=== PATIENT | male | born 1965 | race Caucasian/White ===

== ENCOUNTER 2022-01-03 19:15 | Emergency (ER) | payer OTHER, MEDICAID, SELFPAY ==
[2022-01-03] VITALS (13 sets, daily range): BP systolic 142–179; BP diastolic 101–126; PULSE 92–116; RESP 13–29; TEMP 36.5; O2SAT 90–95
--- NOTE | 2022-01-03 19:23 | DI.RAD.S_ITS ---
PROCEDURE: XR CHEST 2V INDICATIONS: shortness of breath TECHNIQUE: 2 views of the chest were acquired. COMPARISON: [facility], CT, CT ABDOMEN PELVIS WITH CONTRAST, 05/17/2018, 23:39. FINDINGS: Surgical changes and devices: None. Lungs and pleura: Lungs are clear. No pleural effusions or pneumothorax. Mediastinum: Mediastinal contours are normal. Heart size is normal. Bones and chest wall: No suspicious bony abnormalities. Soft tissues appear unremarkable. IMPRESSION: No acute cardiopulmonary abnormality. Dictated by: Pal Boyd M.D. on 01/03/2022 at 19:56 Approved by: Pal Boyd M.D. on 01/03/2022 at 19:58
--- NOTE | 2022-01-03 19:40 | ED_ITS ---
HPI - SOB/Dyspnea General Chief Complaint: Shortness of Breath/Dyspnea Stated Complaint: SOB Time Seen by Provider: 01/03/22 19:40 Source: patient Mode of arrival: Ambulatory History of Present Illness HPI Narrative: 56-year-old male former smoker with history of HTN and GERD presents with a chief complaint of 3-4 days of worsening shortness of breath. He states he feels very tight and wheezy and has had increased cough with production of whitish, frothy sputum. He denies any dizziness, weakness or lightheadedness. He denies any chest pain. He has no nausea, vomiting or diarrhea. He denies any weight gain or weight loss nor any swelling his lower extremities. He denies orthopnea. He states he has been off of his medications for 8 months or so which include various inhaler such as Advair and albuterol. He has had the occasional constipation and diarrhea but nothing significant. He denies urinary complaints such as dysuria, frequency or urgency. Related Data Previous Rx's Medication Instructions Recorded amlodipine 5 mg tablet 5 mg PO DAILY #30 tab 01/04/22 doxycycline hyclate 100 mg tablet 100 mg PO BID #20 tab 01/04/22 fluticasone 250 mcg-salmeterol 50 1 inh INHALATION BID #60 ea 01/04/22 mcg/dose blistr powdr for inhalation (Advair Diskus) lisinopril 20 mg tablet 20 mg PO DAILY #30 tab 01/04/22 prednisone 10 mg tablet See Rx Instructions .ROUTE 01/04/22 .COMPLEX #30 tab Allergies Allergy/AdvReac Type Severity Reaction Status Date / Time No Known Drug Allergies Allergy Verified 01/03/22 20:49 Review of Systems Review of Systems Narrative: GENERAL: See HP HEENT: Denies sinus pain, ear pain, sore throat, difficulty swallowing, dizziness. RESPIRATORY: See HPI CARDIOVASCULAR: See HPI GASTROINTESTINAL: See HPI. : Denies dysuria, frequency, incontinence, hematuria, urinary retention. MUSCULOSKELETAL: denies weakness, joint pain, or bony pain SKIN: Denies rash, skin lesions, or other NEUROLOGIC: Denies weakness, headache, numbness, change in speech, confusion, seizures, incoordination. PSYCHIATRIC: No concerning psychosocial issues. 12 point review of systems is negative except for those stated above Patient History Social History Smoking Status: Former smoker Smoking Status: Former smoker alcohol intake frequency: 3 or more drinks per day Alcohol type: hard liquor Exam Narrative Exam Narrative: GENERAL: [56 year old patient appears stated age. Well-developed patient, in mild distress. HEAD: Atraumatic. Normocephalic. EYES: Pupils equal round and reactive. Extraocular motions intact. No scleral icterus. No injection or drainage. ENT: Nose without bleeding, purulent drainage. Throat without erythema, tonsillar hypertrophy or exudate. Airway patent. NECK: Trachea midline. Non tender CARDIOVASCULAR: Tachycardic but regular rhythm without murmurs, gallops, or rubs. RESPIRATORY: Prolonged expiratory phase with decrease breath sounds throughout, expiratory wheeze in all boogie, no tachypnea, hypoxemia or use of accessory muscles GASTROINTESTINAL: Abdomen soft, non-tender, nondistended. EXTREMITIES: No edema or joint tenderness. BACK: Nontender without deformity or crepitance. No flank tenderness. NEURO: AOx3. SKIN: No rash or erythema of visible areas Initial Vital Signs Initial Vital Signs: Vital Signs Temperature 97.7 F 01/03/22 19:19 Pulse Rate 116 H 01/03/22 19:19 Respiratory Rate 22 01/03/22 19:19 Blood Pressure 160/101 H 01/03/22 19:19 Pulse Oximetry 93 01/03/22 19:19 Course Orders Ordered: ED Orders 01/03/22 19:23 XR chest 2V Stat EKG-12 Lead Stat Measure peak expiratory flow ONCE RT Consult Eval and Treat Now 01/03/22 19:31 COVID19 -Nasal RAPID/Pre-Proc Stat 01/03/22 20:30 Lactate (Lactic Acid) Stat 01/03/22 20:41 Complete Blood Count AUTO DIFF Stat Comprehensive Metabolic Panel Stat D Dimer Stat NT-proBNP (BNP-Adult 18+) Stat Troponin & CK Cardiac Panel Stat 01/03/22 21:36 CT angio chest PE protocol Stat 01/03/22 22:54 Consult to Respiratory Therapy Evaluate & Treat Albuterol (Albuterol Hfa Prepack) 1 box MISC SEEINSTR ONE Stop: 01/04/22 03:07 Discontinued Medications Albuterol (Albuterol 2.5 Mg/3 Ml Neb (Adult)) 5 mg INH NOW ONE Stop: 01/03/22 23:04 Last Admin: 01/03/22 23:08 Dose: 5 mg Documented by: ANJALI Albuterol (Albuterol 2.5 Mg/3 Ml Neb (Adult)) 5 mg INH NOW ONE Stop: 01/04/22 00:31 Albuterol (Albuterol 2.5 Mg/3 Ml Neb (Adult)) 20 mg INH NOW ONE Stop: 01/04/22 00:37 Last Admin: 01/04/22 00:48 Dose: 20 mg Documented by: ANJLAI Albuterol/Ipratropium (Albuterol/Ipratropium 3 Ml Ampul) 3 ml INH NOW ONE Stop: 01/03/22 19:45 Last Admin: 01/03/22 20:08 Dose: 3 ml Documented by: JOESPH Furosemide (Furosemide 40 Mg/4 Ml Vial) 40 mg IV NOW ONE Stop: 01/03/22 21:37 Last Admin: 01/03/22 22:02 Dose: 40 mg Documented by: SANJANA Magnesium Sulfate (Magnesium Sulfate) 2 gm in 50 mls @ 150 mls/hr IV NOW ONE Stop: 01/04/22 00:46 Last Infusion: 01/04/22 00:57 Dose: 0 mls/hr Documented by: SHEILA Cosigned by: MONIKA Admin: 01/04/22 00:37 Dose: 150 mls/hr Documented by: MONIKA Cosigned by: SHEILA Methylprednisolone (Methylprednisolone 125 Mg/2 Ml Vial) 125 mg IV NOW ONE Stop: 01/03/22 19:45 Last Admin: 01/03/22 20:50 Dose: 125 mg Documented by: MONIKA Reevaluation(s) Reevaluation #1: Patient has significant improvement after above-stated therapies. He ambulates through the entire department without conversational dyspnea, pulse ox remains in the low 90s. Vital Signs Vital signs: Vital Signs - 8 hr 01/03/22 19:19 01/03/22 19:57 01/03/22 20:00 Temperature 97.7 F Pulse Rate 116 H 109 H 109 H Respiratory Rate 22 25 H Blood Pressure 160/101 H Pulse Oximetry 93 92 91 01/03/22 20:30 01/03/22 21:00 01/03/22 21:01 Temperature Pulse Rate 99 H 95 H 100 H Respiratory Rate 24 28 H 28 H Blood Pressure 142/108 H Pulse Oximetry 90 L 91 91 01/03/22 21:30 01/03/22 22:02 01/03/22 22:04 Temperature Pulse Rate 98 H 104 H Respiratory Rate 21 20 Blood Pressure 169/121 H 179/126 H Pulse Oximetry 91 93 94 01/03/22 22:44 01/03/22 23:00 01/03/22 23:08 Temperature Pulse Rate 101 H 104 H 101 H Respiratory Rate 21 29 H 20 Blood Pressure Pulse Oximetry 93 92 01/03/22 23:30 01/04/22 00:00 01/04/22 00:07 Temperature Pulse Rate 92 H 103 H 101 H Respiratory Rate 13 27 H 23 Blood Pressure 154/98 H Pulse Oximetry 95 89 L 90 L 01/04/22 00:30 01/04/22 01:00 01/04/22 01:14 Temperature Pulse Rate 103 H 92 H 92 H Respiratory Rate 19 19 20 Blood Pressure Pulse Oximetry 88 L 93 01/04/22 01:30 01/04/22 02:00 01/04/22 02:30 Temperature Pulse Rate 99 H 97 H 95 H Respiratory Rate 27 H 19 Blood Pressure Pulse Oximetry 94 95 MDM - SOB/Dyspnea Lab Data Result diagrams: 01/03/22 20:41 01/03/22 20:41 Labs: Lab Results 01/03/22 01/03/22 01/03/22 Range/Units 19:31 20:30 20:41 WBC 6.8 (4.5-11.0) X10^3/uL RBC 5.44 (4.5-5.9) X10^6/uL Hgb 17.1 (13.5-17.5) g/dL Hct 50.5 (41-53) % MCV 92.9 (80-100) fL MCH 31.5 (26-34) PG MCHC 33.9 (30-36) % RDW 14.4 (11.6-14.8) % Plt Count 290 (150-400) X10^3/uL Neut % (Auto) 50.0 (50-75) % Lymph % (Auto) 31.3 (25-40) % [place] % (Auto) 6.7 (3-14) % Eos % (Auto) 10.6 H (2-4) % Baso % (Auto) 1.4 (0-2) % Neut # (Auto) 3400 (7056-4414) /uL Lymph # (Auto) 2100 (1407-1095) /uL [place] # (Auto) 500 (0-900) /uL Eos # (Auto) 700 H (0-450) /uL Baso # (Auto) 100 (0-100) /uL D-Dimer (<230) ng/mL Sodium (137-145) mmol/L Potassium (3.4-5.1) mmol/L Chloride (98-107) mmol/L Carbon Dioxide (22-32) mmol/L BUN (9-20) mg/dL Creatinine (0.66-1.25) mg/dL Estimated GFR (>60) mL/min BUN/Creatinine Ratio (6-22) Glucose (70-100) mg/dL Lactate 1.4 (0.7-2.1) mmol/L Calcium (8.4-10.2) mg/dL Total Bilirubin (0.2-1.3) mg/dL AST (17-59) IU/L ALT (<50) IU/L Alkaline Phosphatase (38-126) U/L Total Creatine Kinase (55-170) U/L CK-MB (CK-2) (<2.37) ng/mL CK-MB (CK-2) Rel Index (1.5-5.0) % Troponin I (0.01-0.034) ng/mL NT-Pro-B Natriuret Pep (<125) pg/mL Total Protein (6.3-8.2) g/dL Albumin (3.5-5.0) g/dL Globulin (1.7-4.1) g/dL Albumin/Globulin Ratio (1.0-2.8) SARS-CoV-2 (PCR) Negative (Negative) 01/03/22 01/03/22 01/03/22 Range/Units 20:41 20:41 20:41 WBC (4.5-11.0) X10^3/uL RBC (4.5-5.9) X10^6/uL Hgb (13.5-17.5) g/dL Hct (41-53) % MCV (80-100) fL MCH (26-34) PG MCHC (30-36) % RDW (11.6-14.8) % Plt Count (150-400) X10^3/uL Neut % (Auto) (50-75) % Lymph % (Auto) (25-40) % [place] % (Auto) (3-14) % Eos % (Auto) (2-4) % Baso % (Auto) (0-2) % Neut # (Auto) (2159-1844) /uL Lymph # (Auto) (9528-2116) /uL [place] # (Auto) (0-900) /uL Eos # (Auto) (0-450) /uL Baso # (Auto) (0-100) /uL D-Dimer 330 H (<230) ng/mL Sodium 139 (137-145) mmol/L Potassium 4.4 (3.4-5.1) mmol/L Chloride 101 (98-107) mmol/L Carbon Dioxide 27 (22-32) mmol/L BUN 14 (9-20) mg/dL Creatinine 1.06 (0.66-1.25) mg/dL Estimated GFR > 60 (>60) mL/min BUN/Creatinine Ratio 13.2 (6-22) Glucose 92 (70-100) mg/dL Lactate (0.7-2.1) mmol/L Calcium 9.1 (8.4-10.2) mg/dL Total Bilirubin 0.9 (0.2-1.3) mg/dL AST 34 (17-59) IU/L ALT 20 (<50) IU/L Alkaline Phosphatase 43 (38-126) U/L Total Creatine Kinase 141 (55-170) U/L CK-MB (CK-2) 6.13 H (<2.37) ng/mL CK-MB (CK-2) Rel Index 4.3 (1.5-5.0) % Troponin I 0.031 (0.01-0.034) ng/mL NT-Pro-B Natriuret Pep 2870 H (<125) pg/mL Total Protein 8.5 H (6.3-8.2) g/dL Albumin 4.6 (3.5-5.0) g/dL Globulin 3.9 (1.7-4.1) g/dL Albumin/Globulin Ratio 1.2 (1.0-2.8) SARS-CoV-2 (PCR) (Negative) Imaging Data CT scan - chest: Radiologist's Impression: [address] [address] [address] Scan Report Addendum Patient: Kapil Suárez MR#: [id number] : 1965 Acct:[id number] Age/Sex: 56 / M Date of Service: 01/03/22 Loc: ED Accession Number: [id number] ?? Procedure: CT angio chest PE protocol Ordering Provider: Melvin Gaitan D.O. ADDENDUMThis report includes an Addendum and supersedes previous reports for this exam. ? ? ? PROCEDURE:? CT ANGIO CHEST PE PROTOCOL ? INDICATIONS:? SOB, tachycardia 99, hypoxemia R24, critical / BNP ? TECHNIQUE:? After the administration of intravenous contrast, 2 mm thick sections acquired from the pulmonary apices to the posterior costophrenic angles.? 3-dimensional maximum intensity projection (MIP) coronal and sagittal reformats were then acquired through the thorax.? For radiation dose reduction, the following was used:? automated exposure con trol, adjustment of mA and/or kV according to patient size.? ? COMPARISON:? [facility], CT, CT ABDOMEN PELVIS WITH CONTRAST, 05/17/2018, 23:39.? [facility], CR, XR CHEST 2V, 01/03/2022, 19:19. ? FINDINGS:? Image quality:? Excellent.? ? Pulmonary arteries:? Pulmonary arteries are normal in size, and demonstrate no intraluminal filling defects to suggest central pulmonary embolism.? ? Lungs and pleura:? Minimal dependent atelectasis.? There is bronchial wall thickening.? This is distal mucus airway plugging.? Central airways are clear.? No pleural effusions or pneumothorax.? ? Mediastinum:? Heart size appears prominent, without pericardial effusion.? No mediastinal or hilar adenopathy.? Thoracic aorta is normal in caliber and enhancement.? Esophagus is normal in caliber, without hiatal hernia.? ? Bones and chest wall:? No suspicious bony lesions.? Ribs and thoracic spine appear intact throughout.? Chronic T12 compression fracture.? Thyroid gland is unremarkable.? No axillary or supraclavicular adenopathy.? Left gynecomastia.? ? Abdomen:? Visualized upper abdominal solid organs appear normal in the early arterial phase of enhancement.? Small hypodensities in the liver.? Cholelithiasis.? ? IMPRESSION:? 1. No pulmonary embolism. ? 2. No acute airspace opacity. ? 3. Cholelithiasis. ? ? ? Dictated by: Pal Boyd M.D. on 01/03/2022 at 22:58 ? ? Approved by: Pal Boyd M.D. on 01/03/2022 at 23:04 ? ? ? ADDENDUM: 4. Bronchial wall thickening and distal mucus airway plugging.? This is most consistent with mild bronchitis. ? ? Dictated by: Pal Boyd M.D. on 01/03/2022 at 23:08 ? ? Approved by: Pal Boyd M.D. on 01/03/2022 at 23:09 ? Addendum Dictated By: Pal Boyd MD Addendum Signed By: Addendum Cosigned By: DD/ TD/TT: 01/03/22 PROCEDURE:? CT ANGIO CHEST PE PROTOCOL ? INDICATIONS:? SOB, tachycardia 99, hypoxemia R24, critical / BNP ? TECHNIQUE:? After the administration of intravenous contrast, 2 mm thick sections acquired from the pulmonary apices to the posterior costophrenic angles.? 3-dimensional maximum intensity projection (MIP) coronal and sagittal reformats were then acquired through the thorax.? For radiation dose reduction, the following was used:? automated exposure control, adjustment of mA and/or kV according to patient size.? ? COMPARISON:? [facility], CT, CT ABDOMEN PELVIS WITH CONTRAST, 05/17/2018, 23:39.? [facility], CR, XR CHEST 2V, 01/03/2022, 19:19. ? FINDINGS:? Image quality:? Excellent.? ? Pulmonary arteries:? Pulmonary arteries are normal in size, and demonstrate no intraluminal filling defects to suggest central pulmonary embolism.? ? Lungs and pleura:? Minimal dependent atelectasis.? There is bronchial wall thickening.? This is distal mucus airway plugging.? Central airways are clear.? No pleural effusions or pneumothorax.? ? Mediastinum:? Heart size appears prominent, without pericardial effusion.? No mediastinal or hilar adenopathy.? Thoracic aorta is normal in caliber and enhancement.? Esophagus is normal in caliber, without hiatal hernia.? ? Bones and chest wall:? No suspicious bony lesions.? Ribs and thoracic spine appear intact throughout.? Chronic T12 compression fracture.? Thyroid gland is unremarkable.? No axillary or supraclavicular adenopathy.? Left gynecomastia.? ? Abdomen:? Visualized upper abdominal solid organs appear normal in the early arterial phase of enhancement.? Small hypodensities in the liver.? Cholelithiasis.? ? IMPRESSION:? 1. No pulmonary embolism. ? 2. No acute airspace opacity. ? 3. Cholelithiasis. ? ? ? Dictated by: Pal Boyd M.D. on 01/03/2022 at 22:58 ? ? Approved by: Pal Boyd M.D. on 01/03/2022 at 23:04 ? MDM Narrative Medical decision making narrative: Multiple etiologies for patient's symptoms considered including: [Exacerbation of COPD versus pneumonia versus pulmonary embolism versus pulmonary edema versus other Findings and discharge diagnosis discussed with patient/family followed by verbalization of understanding Patient has significant improvement in symptoms after above-stated therapies. He has had extensive evaluation and multiple medications. He is now able to ambulate through the department, has no conversational dyspnea and pulse ox is in the low 90s. We have discussed at length the importance of establishing with a primary care provider and getting back on his medications. I have refilled his chronic medications. He has been given extensive return precautions and questions have been answered to his apparent satisfaction Discharge Plan Departure Patient Disposition: Home Clinical Impression: Atypical pneumonia, Pulmonary edema, Acute exacerbation of chronic obstructive pulmonary disease Instructions: Atypical Pneumonia Activity Restrictions/Additional Instructions: *You have been diagnosed with [exacerbation of COPD, atypical pneumonia, mild pulmonary edema *What to do: *Please continue to take your regular medications as directed. [ x] New medication prescriptions sent to your pharmacy: [ [facility] in [place]] [ ] New medication written as a paper prescription [ ] No new medications given *Please follow up with your primary care provider in 2-3 days, call for an appointment. Let them know you were seen in the Emergency Department and that we ask that you be seen in follow up. We will electronically transmit a record of today's note if your PCP is in our system *If you do not have a primary care provider please contact the [facility] Resource line at [phone]. They will ask some questions about your medical history and help get you set up with a doctor in the community. *Return to Emergency Department if you should have any new, worsening or concerning symptoms, such as [fever greater than 101 F, shaking chills, worsening pain, persistent vomiting or other bothersome symptoms] Prescriptions: New prednisone 10 mg tablet See Rx Instructions .ROUTE .COMPLEX Qty: 30 0RF Rx Instructions: Day 1,2,3: 40mg PO Daily Day 4,5,6: 30mg PO Daily Day 7,8,9: 20mg PO Daily Day 10,11,12: 10mg PO Daily #30 doxycycline hyclate 100 mg tablet 100 mg PO BID Qty: 20 0RF fluticasone propion-salmeterol [Advair Diskus] 250-50 mcg/dose blister with device 1 inh inhalation BID Qty: 60 0RF lisinopril 20 mg tablet 20 mg PO DAILY Qty: 30 0RF amlodipine 5 mg tablet 5 mg PO DAILY Qty: 30 0RF
[2022-01-03 19:59] LABS: COVID19 -Nasal RAPID Negative (Negative)
[2022-01-03] MEDS: ALBUTEROL/IPRATROPIUM 3 ML AMPUL INH (20:08)
[2022-01-03 20:50] LABS: Lactate (Lactic Acid) 1.4 mmol/L (0.7-2.1)
[2022-01-03] MEDS: methylPREDNISolone 125 MG/2 ML VIAL IV (20:50)
[2022-01-03 20:57] LABS: Add Manual Diff / Slide Review NO; Basophils Absolute Auto 100 /uL (0-100); Basophils Percent Auto 1.4 % (0-2); Eosinophils Absolute Auto 700 /uL (0-450); Eosinophils Percent Auto 10.6 % (2-4); Hematocrit 50.5 % (41-53); Hemoglobin 17.1 g/dL (13.5-17.5); Lymphocytes Absolute Auto 2100 /uL (1100-4500); Lymphocytes Percent Auto 31.3 % (25-40); Mean Corpuscular HGB Conc 33.9 % (30-36); Mean Corpuscular Hemoglobin 31.5 PG (26-34); Mean Corpuscular Volume 92.9 fL (80-100); Monocytes Absolute Auto 500 /uL (0-900); Monocytes Percent Auto 6.7 % (3-14); Neutrophils Absolute Auto 3400 /uL (1500-7000); Platelet Count 290 X10^3/uL (150-400); Red Blood Cell Count 5.44 X10^6/uL (4.5-5.9); Red Cell Distribution Width 14.4 % (11.6-14.8); White Blood Cell Count 6.8 X10^3/uL (4.5-11.0)
[2022-01-03 21:03] LABS: D Dimer 330 ng/mL (<230)
[2022-01-03 21:04] LABS: Alanine Aminotransferase 20 IU/L (<50); Albumin 4.6 g/dL (3.5-5.0); Albumin Globulin Ratio 1.2 (1.0-2.8); Alkaline Phosphatase 43 U/L (38-126); Aspartate Aminotransferase 34 IU/L (17-59); BUN Creatinine Ratio 13.2 (6-22); Bilirubin Total 0.9 mg/dL (0.2-1.3); Blood Urea Nitrogen 14 mg/dL (9-20); Calcium 9.1 mg/dL (8.4-10.2); Carbon Dioxide 27 mmol/L (22-32); Chloride 101 mmol/L (98-107); Creatine Kinase 141 U/L (55-170); Estimated Glomerular Filt Rate > 60 mL/min (>60); Globulin 3.9 g/dL (1.7-4.1); Glucose 92 mg/dL (70-100); Potassium 4.4 mmol/L (3.4-5.1); Sodium 139 mmol/L (137-145); Total Protein 8.5 g/dL (6.3-8.2)
[2022-01-03 21:12] LABS: NT-proBNP (BNP-Adult 18+) 2870 pg/mL (<125)
[2022-01-03 21:16] LABS: Troponin I 0.031 ng/mL (0.01-0.034)
[2022-01-03 21:22] LABS: HEMOLYSIS 96 (0-50)
--- NOTE | 2022-01-03 21:36 | DI.CT.S_ITS ---
PROCEDURE: CT ANGIO CHEST PE PROTOCOL INDICATIONS: SOB, tachycardia 99, hypoxemia R24, critical [id number] / BNP TECHNIQUE: After the administration of intravenous contrast, 2 mm thick sections acquired from the pulmonary apices to the posterior costophrenic angles. 3-dimensional maximum intensity projection (MIP) coronal and sagittal reformats were then acquired through the thorax. For radiation dose reduction, the following was used: automated exposure control, adjustment of mA and/or kV according to patient size. COMPARISON: [facility], CT, CT ABDOMEN PELVIS WITH CONTRAST, 05/17/2018, 23:39. [facility], CR, XR CHEST 2V, 01/03/2022, 19:19. FINDINGS: Image quality: Excellent. Pulmonary arteries: Pulmonary arteries are normal in size, and demonstrate no intraluminal filling defects to suggest central pulmonary embolism. Lungs and pleura: Minimal dependent atelectasis. There is bronchial wall thickening. This is distal mucus airway plugging. Central airways are clear. No pleural effusions or pneumothorax. Mediastinum: Heart size appears prominent, without pericardial effusion. No mediastinal or hilar adenopathy. Thoracic aorta is normal in caliber and enhancement. Esophagus is normal in caliber, without hiatal hernia. Bones and chest wall: No suspicious bony lesions. Ribs and thoracic spine appear intact throughout. Chronic T12 compression fracture. Thyroid gland is unremarkable. No axillary or supraclavicular adenopathy. Left gynecomastia. Abdomen: Visualized upper abdominal solid organs appear normal in the early arterial phase of enhancement. Small hypodensities in the liver. Cholelithiasis. IMPRESSION: 1. No pulmonary embolism. 2. No acute airspace opacity. 3. Cholelithiasis. Dictated by: Pal Boyd M.D. on 01/03/2022 at 22:58 Approved by: Pal Boyd M.D. on 01/03/2022 at 23:04
[2022-01-03] MEDS: FUROSEMIDE 40 MG/4 ML VIAL IV (22:02)
[2022-01-03 22:15] LABS: CKMB % Relative Index 4.3 % (1.5-5.0); Creatine Kinase MB 6.13 ng/mL (<2.37)
[2022-01-03] MEDS: ALBUTEROL 2.5 MG/3 ML NEB (ADULT) 5 MG INH (23:08)
[2022-01-04] VITALS (9 sets, daily range): BP systolic 154; BP diastolic 98; PULSE 92–103; RESP 19–27; O2SAT 88–95
[2022-01-04] MEDS: MAGNESIUM SULFATE 2 GM/50 ML PIGGYBACK IV (00:37)
[2022-01-04] MEDS: ALBUTEROL 2.5 MG/3 ML NEB (ADULT) 20 MG INH (00:48)
--- NOTE | 2022-01-04 02:56 | PC.NURSE ---
ambulation trial, passed, pt walked 200ft with a Spo2 of 90%
[2022-01-04] MEDS: ALBUTEROL HFA PREPACK 1 BOX MISC (03:09)
--- NOTE | 2022-01-04 07:29 | PC.NURSE ---
friend called to see if her got a ride.
== END 2022-01-04 04:47 | disposition home or self-care (01) ==
PROVIDERS: Emergency Provider Emergency Medicine
DX: J18.9 Pneumonia, unspecified organism (principal); J81.1 Chronic pulmonary edema; J44.1 Chronic obstructive pulmonary disease with (acute) exacerbation; Z87.891 Personal history of nicotine dependence; Z20.822 Contact with and (suspected) exposure to COVID-19
CPT/HCPCS: 36415; 71046; 71275; 80053; 82550; 82553; 83605; 83880; 84484; 85025; 85379; 87635; 93005; 94640; 96365; 96375; 99284; C9803; J1940; J2930; J3475; J7613; Q9967

== ENCOUNTER 2023-08-05 11:46 | Observation (INO) | payer OTHER, SELFPAY ==
[2023-08-05] VITALS (13 sets, daily range): BP systolic 134–198; BP diastolic 84–123; PULSE 102–111; RESP 17–26; TEMP 36.1–36.9; O2SAT 92–97; BMI 30.3
--- NOTE | 2023-08-05 | DI.CT.S_ITS ---
PROCEDURE: CT ELBOW WITH LEFT INDICATIONS: infection in elbow and mid forearm TECHNIQUE: Noncontrast 1-1.5 mm axial sections were acquired through the elbow joint, with coronal and sagittal reformats. COMPARISON: None. FINDINGS: Image quality: Excellent. Bones: No acute fracture or osseous erosions. Soft tissues: Extensive soft tissue edema throughout the forearm most prominent along the dorsal aspect with early rim enhancement of a fluid collection over the proximal ulna with subtle rim enhancement measuring 3.8 x 0.7 by 5.2 centimeters. IMPRESSION: Extensive soft tissue edema throughout the forearm with rim enhancing fluid collection overlying the olecranon which may reflect abscess versus hyperemia and synovial proliferation from olecranon bursitis. Given the extensive soft tissue edema favor abscess. Correlate for signs of infection Dictated by: Hosea King M.D. on 08/05/2023 at 16:10 Approved by: Hosea King M.D. on 08/05/2023 at 16:18
--- NOTE | 2023-08-05 12:08 | ED.WOUNDLAC ---
HPI - Wound/Laceration <Kaden Rodriguez PA-C - Last Filed: 08/05/23 13:50> General Chief Complaint: Wound/Laceration Stated Complaint: PER PT INFECTION IN ARM/ELBOW Time Seen by Provider: 08/05/23 11:49 Source: patient Mode of arrival: Ambulatory History of Present Illness HPI narrative: This is a 58-year-old male presents emergency department due to left upper extremity redness and swelling for the last 10 days. He states that he initially drilled into his left 2nd digit 11 days ago and did not come to the emergency department. His tetanus is not up-to-date. He drilled into 11 days ago with some mild pain but then soon after noticed redness and swelling affecting his left hand and and forearm. He states that his forearm feels ?tight and hot?. States that his hand feels like this as well. He is not describe any significant pain in affecting his fingers does not describe any changes in range of motion. Related Data Home Medications Medication Instructions Recorded Confirmed albuterol sulfate 90 mcg/actuation 1 puff inhalation DAILY 08/05/23 08/05/23 aerosol inhaler fluticasone propionate 115 1 puff inhalation DAILY 08/05/23 08/05/23 mcg-salmeterol 21 mcg/actuation HFA inhaler (Advair HFA) furosemide 20 mg tablet 20 mg PO DAILY 08/05/23 08/05/23 omeprazole 40 mg capsule,delayed 40 mg PO DAILY 08/05/23 08/05/23 release Previous Rx's Medication Instructions Recorded amlodipine 5 mg tablet 5 mg PO DAILY #30 tabs 01/04/22 lisinopril 20 1 tab PO DAILY #90 tabs 01/06/22 mg-hydrochlorothiazide 12.5 mg tablet Allergies Allergy/AdvReac Type Severity Reaction Status Date / Time No Known Drug Allergies Allergy Verified 08/05/23 12:04 Review of Systems <Kaden Rodriguez PA-C - Last Filed: 08/05/23 13:50> Review of Systems Narrative: GENERAL: Denies chills, fatigue, malaise, fever, sweats. HEENT: Denies sinus pain, ear pain, sore throat, difficulty swallowing, dizziness. RESPIRATORY: Denies dyspnea, cough, wheezing, hemoptysis, sputum. CARDIOVASCULAR: Denies chest pain, palpitations, orthopnea, edema, GASTROINTESTINAL: Denies nausea, vomiting, abdominal pain, diarrhea, constipation, melena. : Denies dysuria, frequency, incontinence, hematuria, urinary retention. MUSCULOSKELETAL: denies weakness, joint pain, or bony pain SKIN: Left forearm and hand erythema and tight to the touch NEUROLOGIC: Denies weakness, headache, numbness, change in speech, confusion, seizures, incoordination. PSYCHIATRIC: No concerning psychosocial issues. 12 point review of systems is negative except for those stated above Patient History <Kaden Rodriguez PA-C - Last Filed: 08/05/23 13:50> Medical History (Updated 08/05/23 @ 13:50 by Kaden Rodriguez PA-C) Hernia Vision disorder Hearing loss Ulcers of both lower legs (~2015) Alopecia (~2019) COPD (chronic obstructive pulmonary disease) (~2009) Substance abuse (~1987) PTSD (post-traumatic stress disorder) Depression (~1989) Shoulder pain (~2011) Fractures (~1975) Chronic back pain (~1989) Chicken pox Partial blindness (~1995) Hemorrhoid (~2019) Fatigue Surgical History (Updated 02/17/22 @ 21:15 by Laya Newman) Anesthesia History of thumb surgery (~2003) History of knee surgery (~1975) History of eye surgery (~1995) History of back surgery (~2016) Family History (Updated 02/17/22 @ 21:16 by Laya Newman) Father History of heart disease Mother History of heart disease Brother History of heart disease Hypertension Social History household members: none Smoking Status: Former smoker alcohol intake: current Smoking Status: Former smoker alcohol intake frequency: 3 or more drinks per day Alcohol type: hard liquor Exam <Kaden Rodriguez PA-C - Last Filed: 08/05/23 13:50> Narrative Exam Narrative: GENERAL: Well-developed patient, in mild distress. HEAD: Atraumatic. Normocephalic. EYES: Pupils equal round and reactive. Extraocular motions intact. No scleral icterus. No injection or drainage. ENT: Nose without bleeding, purulent drainage. Throat without erythema, tonsillar hypertrophy or exudate. Airway patent. NECK: Trachea midline. Non tender CARDIOVASCULAR: Regular rate and rhythm without murmurs, gallops, or rubs. RESPIRATORY: Clear to auscultation. Breath sounds equal bilaterally. No wheezes, rales, or rhonchi. GASTROINTESTINAL: Abdomen soft, non-tender, nondistended. EXTREMITIES: No edema or joint tenderness. BACK: Nontender without deformity or crepitance. No flank tenderness. NEURO: AOx3. SKIN: Small puncture wound to the lateral aspect of the left 2nd digit. No significant fluctuance around the area, no purulent drainage. Erythema affecting the left hand with swelling as well as the left forearm. No pain with passive extension at the PIP joint of the left 2nd digit. No flexor tendon sheath tenderness. Initial Vital Signs Initial Vital Signs: Vital Signs Temperature 97.9 F 08/05/23 12:01 Pulse Rate 104 H 08/05/23 12:01 Respiratory Rate 17 08/05/23 12:01 Blood Pressure 198/123 H 08/05/23 12:01 Pulse Oximetry 95 08/05/23 12:01 Oxygen Delivery Method Room Air 08/05/23 12:01 <Yahaira Guzman DO - Last Filed: 08/05/23 16:12> Initial Vital Signs Initial Vital Signs: Vital Signs Temperature 97.9 F 08/05/23 12:01 Pulse Rate 104 H 08/05/23 12:01 Respiratory Rate 17 08/05/23 12:01 Blood Pressure 198/123 H 08/05/23 12:01 Pulse Oximetry 95 08/05/23 12:01 Oxygen Delivery Method Room Air 08/05/23 12:01 Course <Kaden Rodriguez PA-C - Last Filed: 08/05/23 13:50> Orders Ordered: ED Orders 08/05/23 12:07 XR finger LT min 2V Stat 08/05/23 12:59 Complete Blood Count AUTO DIFF Stat Comprehensive Metabolic Panel Stat Lactate (Lactic Acid) Stat Procalcitonin Stat 08/05/23 13:25 Blood Culture Stat Acetaminophen (Acetaminophen 325 Mg Tablet) 650 mg PO Q6H PRN PRN Reason: Fever/Mild Pain (1-3) Amlodipine Besylate (Amlodipine 5 Mg Tablet) 5 mg PO DAILY [facility] Last Admin: 08/05/23 14:15 Dose: 5 mg Documented By: ROLANDO Hydrochlorothiazide (Hydrochlorothiazide 25 Mg Tablet) 12.5 mg PO DAILY [facility] Last Admin: 08/05/23 14:29 Dose: 12.5 mg Documented By: ROLANDO Ceftriaxone Sodium 1,000 mg/ (Sodium Chloride) 100 mls @ 200 mls/hr IV Q24H [facility] Stop: 08/09/23 21:01 Vancomycin HCl/Dextrose (Vancomycin) 1,500 mg in 300 mls @ 200 mls/hr IV Q12H [facility] Lisinopril (Lisinopril 20 Mg Tablet) 20 mg PO DAILY [facility] Last Admin: 08/05/23 14:28 Dose: 20 mg Documented By: ROLANDO Melatonin (Melatonin 3 Mg Tablet) 6 mg PO BEDTIME PRN PRN Reason: Insomnia Naloxone HCl (Naloxone 0.4 Mg/Ml Vial) 0.2 mg IV Q2MIN PRN PRN Reason: Opiate Reversal Ondansetron HCl (Ondansetron 4 Mg/2 Ml Inj) 4 mg IV Q6HR PRN PRN Reason: NV Oxycodone HCl (Oxycodone Ir 5 Mg Tablet) 5 mg PO Q4HR PRN PRN Reason: Pain, Moderate (4-6) Pantoprazole Sodium (Pantoprazole Dr 40 Mg Tablet) 40 mg PO 0600 [facility] Polyethylene Glycol (Polyethylene Glycol 3350 17 Gm Powd.Pack) 17 gm PO DAILY PRN PRN Reason: Constipation Sennosides (Sennosides 8.6 Mg Tablet) 8.6 mg PO BID PRN PRN Reason: Constipation Vancomycin HCl (Vancomycin Per Pharmacy) 1 request MISC PRN PRN PRN Reason: . Vancomycin HCl (Vancomycin Trough) 1 request MISC 1330 ONE Stop: 08/07/23 13:31 Discontinued Medications Diphtheria/Tetanus/Acell Pertussis (Tet,Diph,Pertuss(Acell),Vac/Pf 0.5 Ml Syringe) 0.5 ml IM .ONCE ONE Stop: 08/05/23 12:18 Last Admin: 08/05/23 12:59 Dose: 0.5 ml Documented By: RENATA Piperacillin Sod/Tazobactam (Sod 4.5 gm/ Sodium Chloride) 100 mls @ 200 mls/hr IV NOW ONE Stop: 08/05/23 12:18 Last Infusion: 08/05/23 14:05 Dose: Infused Documented By: Admin: 08/05/23 13:29 Dose: 200 mls/hr Documented By: RENATA Vancomycin HCl (Vancomycin) 1,000 mg in 200 mls @ 200 mls/hr IV NOW ONE Stop: 08/05/23 13:16 Last Admin: 08/05/23 14:24 Dose: Not Given Documented By: ROLANDO Sodium Chloride (Normal Saline 0.9%) 1,000 mls @ 1,000 mls/hr IV BOLUS ONE Stop: 08/05/23 13:16 Last Infusion: 08/05/23 14:06 Dose: Infused Documented By: Admin: 08/05/23 13:01 Dose: 1,000 mls/hr Documented By: RENATA Vancomycin HCl/Dextrose (Vancomycin) 2,000 mg in 400 mls @ 200 mls/hr IV NOW ONE Stop: 08/05/23 14:29 Last Admin: 08/05/23 14:25 Dose: Not Given Documented By: ROLANDO Vancomycin HCl/Dextrose (Vancomycin) 2,000 mg in 400 mls @ 200 mls/hr IV NOW ONE Stop: 08/05/23 15:59 Last Infusion: 08/05/23 14:57 Dose: 200 mls/hr Documented By: Admin: 08/05/23 14:18 Dose: 200 mls/hr Documented By: ROLANDO Morphine Sulfate (Morphine 4 Mg/Ml Inj) 4 mg IV NOW ONE Stop: 08/05/23 13:40 Last Admin: 08/05/23 13:58 Dose: 4 mg Documented By: ROLANDO Ondansetron HCl (Ondansetron 4 Mg/2 Ml Inj) 4 mg IV NOW ONE Stop: 08/05/23 13:40 Last Admin: 08/05/23 13:58 Dose: 4 mg Documented By: ORLANDO Vital Signs Vital signs: Vital Signs - 8 hr 08/05/23 12:01 08/05/23 12:17 08/05/23 12:18 Temperature 97.9 F Pulse Rate 104 H 111 H 110 H Respiratory Rate 17 Blood Pressure 198/123 H Pulse Oximetry 95 94 94 Oxygen Delivery Method Room Air 08/05/23 12:18 08/05/23 12:30 08/05/23 13:00 Temperature Pulse Rate 104 H 103 H Respiratory Rate 20 21 Blood Pressure 165/99 H Pulse Oximetry 96 Oxygen Delivery Method Room Air 08/05/23 13:08 08/05/23 13:08 08/05/23 13:30 Temperature Pulse Rate 102 H Respiratory Rate 23 Blood Pressure 154/100 H 158/106 H Pulse Oximetry 96 Oxygen Delivery Method 08/05/23 13:30 Temperature Pulse Rate 103 H Respiratory Rate 22 Blood Pressure Pulse Oximetry 97 Oxygen Delivery Method Room Air <Yahaira Guzman, DO - Last Filed: 08/05/23 16:12> Orders Ordered: ED Orders 08/05/23 12:07 XR finger LT min 2V Stat 08/05/23 12:59 Complete Blood Count AUTO DIFF Stat Comprehensive Metabolic Panel Stat Lactate (Lactic Acid) Stat Procalcitonin Stat 08/05/23 13:25 Blood Culture Stat Acetaminophen (Acetaminophen 325 Mg Tablet) 650 mg PO Q6H PRN PRN Reason: Fever/Mild Pain (1-3) Amlodipine Besylate (Amlodipine 5 Mg Tablet) 5 mg PO DAILY [facility] Last Admin: 08/05/23 14:15 Dose: 5 mg Documented By: ROLANDO Hydrochlorothiazide (Hydrochlorothiazide 25 Mg Tablet) 12.5 mg PO DAILY [facility] Last Admin: 08/05/23 14:29 Dose: 12.5 mg Documented By: ROLANDO Ceftriaxone Sodium 1,000 mg/ (Sodium Chloride) 100 mls @ 200 mls/hr IV Q24H [facility] Stop: 08/09/23 21:01 Vancomycin HCl/Dextrose (Vancomycin) 1,500 mg in 300 mls @ 200 mls/hr IV Q12H [facility] Lisinopril (Lisinopril 20 Mg Tablet) 20 mg PO DAILY [facility] Last Admin: 08/05/23 14:28 Dose: 20 mg Documented By: ROLANDO Melatonin (Melatonin 3 Mg Tablet) 6 mg PO BEDTIME PRN PRN Reason: Insomnia Naloxone HCl (Naloxone 0.4 Mg/Ml Vial) 0.2 mg IV Q2MIN PRN PRN Reason: Opiate Reversal Ondansetron HCl (Ondansetron 4 Mg/2 Ml Inj) 4 mg IV Q6HR PRN PRN Reason: NV Oxycodone HCl (Oxycodone Ir 5 Mg Tablet) 5 mg PO Q4HR PRN PRN Reason: Pain, Moderate (4-6) Pantoprazole Sodium (Pantoprazole Dr 40 Mg Tablet) 40 mg PO 0600 [facility] Polyethylene Glycol (Polyethylene Glycol 3350 17 Gm Powd.Pack) 17 gm PO DAILY PRN PRN Reason: Constipation Sennosides (Sennosides 8.6 Mg Tablet) 8.6 mg PO BID PRN PRN Reason: Constipation Vancomycin HCl (Vancomycin Per Pharmacy) 1 request MISC PRN PRN PRN Reason: . Vancomycin HCl (Vancomycin Trough) 1 request [facility] 1330 ONE Stop: 08/07/23 13:31 Discontinued Medications Diphtheria/Tetanus/Acell Pertussis (Tet,Diph,Pertuss(Acell),Vac/Pf 0.5 Ml Syringe) 0.5 ml IM .ONCE ONE Stop: 08/05/23 12:18 Last Admin: 08/05/23 12:59 Dose: 0.5 ml Documented By: RENATA Piperacillin Sod/Tazobactam (Sod 4.5 gm/ Sodium Chloride) 100 mls @ 200 mls/hr IV NOW ONE Stop: 08/05/23 12:18 Last Infusion: 08/05/23 14:05 Dose: Infused Documented By: Admin: 08/05/23 13:29 Dose: 200 mls/hr Documented By: RENATA Vancomycin HCl (Vancomycin) 1,000 mg in 200 mls @ 200 mls/hr IV NOW ONE Stop: 08/05/23 13:16 Last Admin: 08/05/23 14:24 Dose: Not Given Documented By: ROLANDO Sodium Chloride (Normal Saline 0.9%) 1,000 mls @ 1,000 mls/hr IV BOLUS ONE Stop: 08/05/23 13:16 Last Infusion: 08/05/23 14:06 Dose: Infused Documented By: Admin: 08/05/23 13:01 Dose: 1,000 mls/hr Documented By: RENATA Vancomycin HCl/Dextrose (Vancomycin) 2,000 mg in 400 mls @ 200 mls/hr IV NOW ONE Stop: 08/05/23 14:29 Last Admin: 08/05/23 14:25 Dose: Not Given Documented By: ROLANDO Vancomycin HCl/Dextrose (Vancomycin) 2,000 mg in 400 mls @ 200 mls/hr IV NOW ONE Stop: 08/05/23 15:59 Last Infusion: 08/05/23 14:57 Dose: 200 mls/hr Documented By: Admin: 08/05/23 14:18 Dose: 200 mls/hr Documented By: ROLANDO Morphine Sulfate (Morphine 4 Mg/Ml Inj) 4 mg IV NOW ONE Stop: 08/05/23 13:40 Last Admin: 08/05/23 13:58 Dose: 4 mg Documented By: ROLANDO Ondansetron HCl (Ondansetron 4 Mg/2 Ml Inj) 4 mg IV NOW ONE Stop: 08/05/23 13:40 Last Admin: 08/05/23 13:58 Dose: 4 mg Documented By: ROLANDO Vital Signs Vital signs: Vital Signs - 8 hr 08/05/23 12:01 08/05/23 12:17 08/05/23 12:18 Temperature 97.9 F Pulse Rate 104 H 111 H 110 H Respiratory Rate 17 Blood Pressure 198/123 H Pulse Oximetry 95 94 94 Oxygen Delivery Method Room Air 08/05/23 12:18 08/05/23 12:30 08/05/23 13:00 Temperature Pulse Rate 104 H 103 H Respiratory Rate 20 21 Blood Pressure 165/99 H Pulse Oximetry 96 Oxygen Delivery Method Room Air 08/05/23 13:08 08/05/23 13:08 08/05/23 13:30 Temperature Pulse Rate 102 H Respiratory Rate 23 Blood Pressure 154/100 H 158/106 H Pulse Oximetry 96 Oxygen Delivery Method 08/05/23 13:30 Temperature Pulse Rate 103 H Respiratory Rate 22 Blood Pressure Pulse Oximetry 97 Oxygen Delivery Method Room Air MDM - Wound/Laceration <Kaden Rodriguez PA-C - Last Filed: 08/05/23 13:50> Lab Data 08/05/23 12:59 08/05/23 12:59 Labs: Lab Results 08/05/23 Range/Units 12:59 WBC 10.4 (4.5-11.0) X10^3/uL RBC 4.84 (4.5-5.9) X10^6/uL Hgb 16.0 (13.5-17.5) g/dL Hct 46.6 (41-53) % MCV 96.3 (80-100) fL MCH 33.0 (26-34) PG MCHC 34.3 (30-36) % RDW 14.0 (11.6-14.8) % Plt Count 301 (150-400) X10^3/uL Neut % (Auto) 72.4 (50-75) % Lymph % (Auto) 15.5 L (25-40) % [place] % (Auto) 9.2 (3-14) % Eos % (Auto) 2.5 (2-4) % Baso % (Auto) 0.4 (0-2) % Neut # (Auto) 7500 H (4013-4418) /uL Lymph # (Auto) 1600 (7524-9697) /uL [place] # (Auto) 1000 H (0-900) /uL Eos # (Auto) 300 (0-450) /uL Baso # (Auto) 0 (0-100) /uL Sodium 134 L (137-145) mmol/L Potassium 3.9 (3.4-5.1) mmol/L Chloride 99 (98-107) mmol/L Carbon Dioxide 27 (22-32) mmol/L BUN 15 (9-20) mg/dL Creatinine 0.98 (0.66-1.25) mg/dL Estimated GFR > 60 (>60) mL/min BUN/Creatinine Ratio 15.3 (6-22) Glucose 108 H (70-100) mg/dL Lactate 1.8 (0.7-2.1) mmol/L Calcium 9.3 (8.4-10.2) mg/dL Magnesium 2.0 (1.6-2.3) mg/dL Total Bilirubin 1.4 H (0.2-1.3) mg/dL AST 27 (17-59) IU/L ALT 25 (<50) IU/L Alkaline Phosphatase 54 (38-126) U/L Total Protein 7.4 (6.3-8.2) g/dL Albumin 4.1 (3.5-5.0) g/dL Globulin 3.3 (1.7-4.1) g/dL Albumin/Globulin Ratio 1.2 (1.0-2.8) Procalcitonin 0.06 (<0.5) ng/mL Imaging Data Extremity x-ray #1: Radiologist's Impression: [address] [address] XRay Report Signed Patient: Kapil Suárez MR#: [id number] : 1965 Acct:[id number] Age/Sex: 58 / M Date of Service: 08/05/23 Loc: ED Accession Number: [id number] Procedure: XR finger LT min 2V Ordering Provider: Yahaira Guzman D.O. PROCEDURE: XR FINGER LT MIN 2V INDICATIONS: wound, foreign body check TECHNIQUE: AP hand, 2 views of the left 2nd digit finger(s) acquired. COMPARISON: None. FINDINGS: Bones: No fractures or dislocations. No suspicious bony lesions. Soft tissues: No suspicious soft tissue calcifications. IMPRESSION: No acute bony abnormality or retained radiopaque foreign body. Dictated by: Hosea Kign M.D. on 08/05/2023 at 11:38 Approved by: Hosea King M.D. on 08/05/2023 at 11:39 MDM Narrative Medical decision making narrative: MDM * differential diagnosis includes but not limited to cellulitis, abscess, osteomyelitis, flexor tenosynovitis * Prior records reviewed: Patient was seen here a year and a half ago due to a COPD exacerbation. History of hypertension. Patient was given treatment to help with his breathing and was discharged. Treatment was Solu-Medrol, magnesium, furosemide, albuterol. * My lab interpretation: CBC within normal limits, lactate within normal limits. CMP he showed no significant abnormalities. * My imgaing interpretation: X-ray showed no foreign bodies or other bony abnormalities. * Clinical Decision Rules/Scores evaluated: None * Independent discussions with: None ED Course: This is a 58-year-old male presents emergency department due to a worsening cellulitic infection to the left upper extremity. He states that he was drooling 11 days ago when he accidentally drilled into his finger and did not present to any emergency department then but has noticed the redness and swelling spreading up his left hand and forearm. Tetanus was updated. Patient was given vanc and Zosyn. He was also very mildly tachycardic and a L of fluids was ordered. X-ray shows no bony abnormalities foreign bodies. Discussed patient with Dr. Mauricio who kindly accepted the patient for admission. Shared Decision Making: Discussed plan with patient who is comfortable with the plan. Social Considerations: None Disposition: Admitted inpatient <Yahaira Guzman, - Last Filed: 08/05/23 16:12> Lab Data Labs: Lab Results 08/05/23 Range/Units 12:59 WBC 10.4 (4.5-11.0) X10^3/uL RBC 4.84 (4.5-5.9) X10^6/uL Hgb 16.0 (13.5-17.5) g/dL Hct 46.6 (41-53) % MCV 96.3 (80-100) fL MCH 33.0 (26-34) PG MCHC 34.3 (30-36) % RDW 14.0 (11.6-14.8) % Plt Count 301 (150-400) X10^3/uL Neut % (Auto) 72.4 (50-75) % Lymph % (Auto) 15.5 L (25-40) % [place] % (Auto) 9.2 (3-14) % Eos % (Auto) 2.5 (2-4) % Baso % (Auto) 0.4 (0-2) % Neut # (Auto) 7500 H (1961-2468) /uL Lymph # (Auto) 1600 (6543-9489) /uL [place] # (Auto) 1000 H (0-900) /uL Eos # (Auto) 300 (0-450) /uL Baso # (Auto) 0 (0-100) /uL Sodium 134 L (137-145) mmol/L Potassium 3.9 (3.4-5.1) mmol/L Chloride 99 (98-107) mmol/L Carbon Dioxide 27 (22-32) mmol/L BUN 15 (9-20) mg/dL Creatinine 0.98 (0.66-1.25) mg/dL Estimated GFR > 60 (>60) mL/min BUN/Creatinine Ratio 15.3 (6-22) Glucose 108 H (70-100) mg/dL Lactate 1.8 (0.7-2.1) mmol/L Calcium 9.3 (8.4-10.2) mg/dL Magnesium 2.0 (1.6-2.3) mg/dL Total Bilirubin 1.4 H (0.2-1.3) mg/dL AST 27 (17-59) IU/L ALT 25 (<50) IU/L Alkaline Phosphatase 54 (38-126) U/L Total Protein 7.4 (6.3-8.2) g/dL Albumin 4.1 (3.5-5.0) g/dL Globulin 3.3 (1.7-4.1) g/dL Albumin/Globulin Ratio 1.2 (1.0-2.8) Procalcitonin 0.06 (<0.5) ng/mL Discharge Plan Departure Patient Disposition: Admitted As Inpatient Clinical Impression: Cellulitis Admit Date/Time: 08/05/23 13:47 Admit Provider: Branden Mauricio ED Sign-out <Yahaira Guzman, - Last Filed: 08/05/23 16:12> Cosign ED Attending Cosignature Attestation: I was immediately available in the department for consultation. Agree with plan.
[2023-08-05] MEDS: TET,DIPH,PERTUSS(ACELL),VAC/PF 0.5 ML SYRINGE IM (12:59)
[2023-08-05] MEDS: SODIUM CHLORIDE 0.9% 1,000 ML 1000 ML IV (13:01)
[2023-08-05 13:15] LABS: Add Manual Diff / Slide Review NO; Basophils Absolute Auto 0 /uL (0-100); Basophils Percent Auto 0.4 % (0-2); Eosinophils Absolute Auto 300 /uL (0-450); Eosinophils Percent Auto 2.5 % (2-4); Hematocrit 46.6 % (41-53); Lymphocytes Absolute Auto 1600 /uL (1100-4500); Lymphocytes Percent Auto 15.5 % (25-40); Mean Corpuscular HGB Conc 34.3 % (30-36); Mean Corpuscular Volume 96.3 fL (80-100); Monocytes Absolute Auto 1000 /uL (0-900); Monocytes Percent Auto 9.2 % (3-14); Neutrophils Absolute Auto 7500 /uL (1500-7000); Neutrophils Percent Auto 72.4 % (50-75); Platelet Count 301 X10^3/uL (150-400); Red Blood Cell Count 4.84 X10^6/uL (4.5-5.9); White Blood Cell Count 10.4 X10^3/uL (4.5-11.0)
[2023-08-05] MEDS: PIPERACILLIN/TAZO 4.5 GM in SODIUM CHLORIDE 0.9% 100 ML IV (13:29)
[2023-08-05 13:32] LABS: Lactate (Lactic Acid) 1.8 mmol/L (0.7-2.1)
[2023-08-05 13:33] LABS: Alanine Aminotransferase 25 IU/L (<50); Albumin 4.1 g/dL (3.5-5.0); Albumin Globulin Ratio 1.2 (1.0-2.8); Alkaline Phosphatase 54 U/L (38-126); Aspartate Aminotransferase 27 IU/L (17-59); BUN Creatinine Ratio 15.3 (6-22); Bilirubin Total 1.4 mg/dL (0.2-1.3); Blood Urea Nitrogen 15 mg/dL (9-20); Calcium 9.3 mg/dL (8.4-10.2); Carbon Dioxide 27 mmol/L (22-32); Chloride 99 mmol/L (98-107); Estimated Glomerular Filt Rate > 60 mL/min (>60); Globulin 3.3 g/dL (1.7-4.1); Glucose 108 mg/dL (70-100); HEMOLYSIS < 15 (0-50); Potassium 3.9 mmol/L (3.4-5.1); Sodium 134 mmol/L (137-145); Total Protein 7.4 g/dL (6.3-8.2)
--- NOTE | 2023-08-05 13:37 | PC.NURSE ---
t-11 days ago pt had a accident and punctured his left index finger with a drill bit. The past 3x days patient has had worsening swelling, redness, and pain in his left forearm which radiates up to his elbow, shoulder, and left neck.
[2023-08-05 13:49] LABS: Procalcitonin 0.06 ng/mL (<0.5)
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
[2023-08-05] MEDS: MORPHINE 4 MG/ML INJ IV (13:58)
[2023-08-05] MEDS: ONDANSETRON 4 MG/2 ML INJ IV (13:58)
[2023-08-05] MEDS: AMLODIPINE 5 MG TABLET PO (14:15)
[2023-08-05] MEDS: VANCOMYCIN 2,000 MG/400 ML PIGGYBACK 200 MG IV (14:18)
[2023-08-05] MEDS: lisinopriL 20 MG TABLET PO (14:28)
[2023-08-05] MEDS: hydroCHLOROthiazide 25 MG TABLET 12.5 MG PO (14:29)
--- NOTE | 2023-08-05 14:36 | PC.NURSE ---
Pt states he usually drinks a fifth of vodka each day, approximately 30 shots. Pt states he had one shot of whisky this morning.
[2023-08-05 19:10] LABS: MRSA (Nasal) PCR DETECTED (Not Detect)
[2023-08-05] MEDS: cefTRIAXone 1,000 MG in SODIUM CHLORIDE 0.9% 100 ML 200 MG IV (20:37)
[2023-08-05] MEDS: OXYCODONE IR 5 MG TABLET PO (20:39)
[2023-08-05] MEDS: ACETAMINOPHEN 325 MG TABLET 650 MG PO (20:39)
[2023-08-05] MEDS: NICOTINE 14 PATCH 14 MG TOP (20:59)
[2023-08-06] VITALS: BP 119/81; PULSE 93; RESP 19; TEMP 36.1; O2SAT 95
[2023-08-06] MEDS: VANCOMYCIN 1,500 MG/300 ML PIGGYBACK 200 MG IV ×2 (01:48→14:11)
[2023-08-06] MEDS: SODIUM CHLORIDE 0.9% FLUSH 10 ML IV ×3 (01:50→21:12)
[2023-08-06] MEDS: OXYCODONE IR 5 MG TABLET PO ×2 (02:21→19:33)
[2023-08-06] MEDS: ACETAMINOPHEN 325 MG TABLET 650 MG PO (02:21)
[2023-08-06 04:05] VITALS: BP 106/75; PULSE 86; RESP 16; TEMP 35.7; O2SAT 94
[2023-08-06 05:38] LABS: Add Manual Diff / Slide Review NO; Basophils Absolute Auto 100 /uL (0-100); Basophils Percent Auto 1.2 % (0-2); Blood Urea Nitrogen 17 mg/dL (9-20); Calcium 8.8 mg/dL (8.4-10.2); Carbon Dioxide 25 mmol/L (22-32); Chloride 101 mmol/L (98-107); Eosinophils Absolute Auto 300 /uL (0-450); Eosinophils Percent Auto 3.3 % (2-4); Estimated Glomerular Filt Rate > 60 mL/min (>60); Glucose 106 mg/dL (70-100); HEMOLYSIS 20 (0-50); Hematocrit 46.3 % (41-53); Hemoglobin 15.7 g/dL (13.5-17.5); Lymphocytes Absolute Auto 2300 /uL (1100-4500); Lymphocytes Percent Auto 23.4 % (25-40); Mean Corpuscular Volume 97.1 fL (80-100); Monocytes Absolute Auto 1000 /uL (0-900); Monocytes Percent Auto 10.2 % (3-14); Neutrophils Absolute Auto 6200 /uL (1500-7000); Neutrophils Percent Auto 61.9 % (50-75); Platelet Count 264 X10^3/uL (150-400); Potassium 4.3 mmol/L (3.4-5.1); Red Blood Cell Count 4.77 X10^6/uL (4.5-5.9); Red Cell Distribution Width 13.9 % (11.6-14.8); Sodium 133 mmol/L (137-145)
[2023-08-06 08:00] VITALS: BP 100/74; PULSE 94; RESP 16; TEMP 36.2; O2SAT 90
[2023-08-06] MEDS: CHLORHEXIDINE GLUCONATE 15 ML CUP PO ×2 (09:53→21:11)
[2023-08-06] MEDS: MUPIROCIN 22 GM OINT 1 APPLIC TOP ×2 (09:53→21:11)
[2023-08-06] MEDS: hydroCHLOROthiazide 25 MG TABLET 12.5 MG PO (09:54)
[2023-08-06] MEDS: lisinopriL 20 MG TABLET PO (09:55)
[2023-08-06] MEDS: FOLIC ACID 1 MG TABLET PO (09:55)
[2023-08-06] MEDS: THIAMINE 100 MG TABLET PO (09:55)
[2023-08-06] MEDS: AMLODIPINE 5 MG TABLET PO (09:55)
[2023-08-06] MEDS: MULTIVITAMIN 1 TABLET 1 TAB PO (09:55)
--- NOTE | 2023-08-06 10:51 | PM.CN ---
History of Present Illness Consult details Date Patient Seen: 08/06/23 Time Patient Seen: 10:51 Chief complaint: PER PT INFECTION IN ARM/ELBOW Reason for consult: left arm swelling Requesting provider: Branden Mauricio Narrative: Mr. Suárez is a 58 yo M with history of finger injury about a week ago to his left hand. He started to have worsening left forearm swelling started yesterday. He has no fevers or chills associated with his swelling. He presented to the ER for evaluation and treatment of his cellulitis and was admitted to medicine service. CT of his forearm was obtained which showed questionable fluid collection near his proximal ulna, suspicisious for abscess. Orthopedic service was consulted for additional management. Meds Home Medications and Allergies Home Medications Medication Instructions Recorded Confirmed Type amlodipine 5 mg tablet 5 mg PO DAILY #30 tabs 01/04/22 08/05/23 Rx lisinopril 20 1 tab PO DAILY #90 tabs 01/06/22 08/05/23 Rx mg-hydrochlorothiazide 12.5 mg tablet albuterol sulfate 90 mcg/actuation 1 puff inhalation DAILY 08/05/23 08/05/23 History aerosol inhaler fluticasone propionate 115 1 puff inhalation DAILY 08/05/23 08/05/23 History mcg-salmeterol 21 mcg/actuation HFA inhaler (Advair HFA) furosemide 20 mg tablet 20 mg PO DAILY 08/05/23 08/05/23 History omeprazole 40 mg capsule,delayed 40 mg PO DAILY 08/05/23 08/05/23 History release Allergies Allergy/AdvReac Type Severity Reaction Status Date / Time No Known Drug Allergies Allergy Verified 08/05/23 12:04 Review of Systems Review of Systems ROS: Yes All systems reviewed with the patient and are negative except as otherwise documented Exam Vital Signs (past 8 hours): - 08/06/23 04:05 08/06/23 08:00 Temperature 96.3 F L 97.1 F L Pulse Rate 86 94 H Respiratory Rate 16 16 Blood Pressure 106/75 100/74 Pulse Oximetry 94 90 L Oxygen Flow Rate 0 0 Oxygen Delivery Method Room Air Oxygen Flow Rate 0 Const General: cooperative Orientation: alert, awake and oriented x3 Extrem Other: left forearm has generalized swelling. Some induration felt over the olecreanon. Increased pain with palpation over the indurated area over olecranon. Generalized erythema consisted with cellulitis in the hand and forearm without open wound. Objective Labs 08/06/23 05:13 08/06/23 05:13 Labs: Laboratory Results - last 24 hr 08/05/23 08/05/23 08/06/23 12:59 17:50 05:13 WBC 10.4 10.0 RBC 4.84 4.77 Hgb 16.0 15.7 Hct 46.6 46.3 MCV 96.3 97.1 MCH 33.0 33.0 MCHC 34.3 34.0 RDW 14.0 13.9 Plt Count 301 264 Neut % (Auto) 72.4 61.9 Lymph % (Auto) 15.5 L 23.4 L [place] % (Auto) 9.2 10.2 Eos % (Auto) 2.5 3.3 Baso % (Auto) 0.4 1.2 Neut # (Auto) 7500 H 6200 Lymph # (Auto) 1600 2300 [place] # (Auto) 1000 H 1000 H Eos # (Auto) 300 300 Baso # (Auto) 0 100 Sodium 134 L 133 L Potassium 3.9 4.3 Chloride 99 101 Carbon Dioxide 27 25 BUN 15 17 Creatinine 0.98 1.00 Estimated GFR > 60 > 60 BUN/Creatinine Ratio 15.3 17.0 Glucose 108 H 106 H Lactate 1.8 Calcium 9.3 8.8 Magnesium 2.0 Total Bilirubin 1.4 H AST 27 ALT 25 Alkaline Phosphatase 54 Total Protein 7.4 Albumin 4.1 Globulin 3.3 Albumin/Globulin Ratio 1.2 Procalcitonin 0.06 Nasal Screen MRSA (PCR) Detected [facility] Medical History Hernia Vision disorder Hearing loss Ulcers of both lower legs (~2015) Alopecia (~2019) COPD (chronic obstructive pulmonary disease) (~2009) Substance abuse (~1987) PTSD (post-traumatic stress disorder) Depression (~1989) Shoulder pain (~2011) Fractures (~1975) Chronic back pain (~1989) Chicken pox Partial blindness (~1995) Hemorrhoid (~2019) Fatigue Surgical History Anesthesia History of thumb surgery (~2003) History of knee surgery (~1975) History of eye surgery (~1995) History of back surgery (~2017) Family History Father History of heart disease Mother History of heart disease Brother History of heart disease Hypertension Social History household members: none Tobacco & Substance Use Smoking Status: Former smoker alcohol intake: current Assessment & Plan Assessment & Plan narrative: Mr. Suárez is here for evaluation of his left arm/hand cellulitis. CT of his arm showed fluid collection at his proximal ulna suspcious for abscess. He did have some induration and increased pain on manual palpation of his olecranon. Verbal consent was obtained to perform a bedside needle aspiration of his left olecranon bursa. The skin over olecranon was preped using chloroprep stick. 21 gauge needle was used along with a 10 cc syringe to perform the aspiration. 4 cc of straw colored fluid was obtained from the olecranon bursa. There is no odor to the fluid. The consistency of the fuild was water like, not viscous. The fluid is consistent with inflammatory fluid, not purulent fluid due to infection. I recommend continue medical management of his cellulitis. Monitor patient's arm swelling. Patient has left arm olecranon non-septic bursitis, which is treated with rest, NSAIDs and warm compresses as needed. I did instruct patient to elevate his arm on a pillow when he's resting, which may help decrease the swelling to his arm. No surgical treatment is indicated at this time. Please notify orthopedic service if additional issue develops.
--- NOTE | 2023-08-06 11:55 | PC.NURSE ---
Addendum entered by Chloe Arias R.N. 08/06/23 19:09: Patients left arm is still red and he states that his elbow is soar, after aspirated fluid. L.hand remains swollen but looks the same as this morning and not worse. Original Note: Assess- Patient is alert and oriented x4. His l.hand and arm are swollen and red. He denies pain and states that this does feel better today. Patient seen by and he was able to take some fluid from his left elbow this morning. Patient will not have an I&D today and he is on iv antibiotics. He will have a shower with some hibiclens after lunch. Resting now.
--- NOTE | 2023-08-06 12:09 | CM.DANOTE ---
DCP: Case received, EMR reviewed and met with patient. Introduced self and role. Was able to obtain information in order to complete DCP assessment. Assessment was completed with information currently available. Patient is a 58 year old male who admitted yesterday afternoon to the care of the hospitalist team. PCP: Dr. Carmelita Sky. Payer: confirmed: [employer]. Patient came to the hospital via private vehicle secondary to increased swelling and redness to his left upper extremity. Patient indicated that he had initially drilled into his left 2nd digit about 11 days ago, did not come to ER. He had later noted pain and swelling affecting his arm. Patient was diagnosed with left elbow cellulitis, and did have surgical consult with Dr. Yost. who had done a needle aspiration of the affected area. Orthopedist indicated, no other surgical intervention needed. Met with patient in his room. He is alert, confirmed that he resides in [place], is unemployed is disabled. Stated that he just recently had gotten established with Dr. Carmelita Sky in [place]. He is independent at his baseline. P: DCP to continue to follow. Plan most likely will be home once medically stable. Lucia Martínez RN/Counter Maker Discharge Planning/Care Management CM Discharge Assessment Start: 08/06/23 12:06 Freq: Status: Active Protocol: Document 08/06/23 12:06 (Rec: 08/06/23 12:08 [email or web address]) Discharge Planning Assessment Assigned [employer] Worker Apprentice Lucia Martínez RN/Counter Maker Advance Directives? No History Provided By Patient,Medical Record Prior Living Arrangements House Household Members none Type of transporation used prior to Drives own vehicle admit Independent with ADL's Yes Is patient alert and oriented? Yes Caregiver for Another No Barriers to Discharge No Discharge Plan Home Referrals Initiated None needed Whiteboard Updated in Patient Room with Yes name and ext. # of [employer] Worker Apprentice Review Status In Process Next Review Type Continued Stay Review
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
[2023-08-06 15:00] VITALS: BP 149/93; PULSE 99; RESP 16; TEMP 36.3; O2SAT 92
[2023-08-06 19:30] VITALS: BP 143/94; PULSE 103; RESP 20; TEMP 37.2; O2SAT 94
[2023-08-06] MEDS: cefTRIAXone 1,000 MG in SODIUM CHLORIDE 0.9% 100 ML 200 MG IV (21:07)
[2023-08-06] MEDS: SODIUM CHLORIDE 0.9% 250 ML 21 ML IV (21:07)
[2023-08-07] VITALS (10 sets, daily range): BP systolic 110–139; BP diastolic 77–88; PULSE 91–104; RESP 16–20; TEMP 36.1–36.8; O2SAT 92–96
[2023-08-07] MEDS: OXYCODONE IR 5 MG TABLET PO ×2 (00:02→15:27)
--- NOTE | 2023-08-07 00:37 | PC.NURSE ---
Patient is alert and oriented. [place] but does not have hearing aids. Reports numbness of bilateral hands which he states he has had for past 6 months. Left eye has drooping lower lid with erythema of inner lid and redness of sclera from past injury (states it is unchanged). Does report some blurred vision and states acuity in left eye is 20/200. Breath sounds with expiratory wheezing in bilateral upper lobes and left middle lobe; RA sat is 94%. States he has COPD and normally uses advair and rescue inhaler. HRR but tachy at 103 bpm; BP also elevated at 143/94. Denied nausea. BT hypoactive but reports passing flatus and states he had BM earlier today. Denied dysuria with urination. Is independent with mobility and steady on his feet so is refusing SCD's; reminded to ankle wave when awake. Left UE is swollen, warm to touch with erythema. Reports some itching of left arm as well as pain (described as tight, tender and sharp) which has been relieved with use of oxycodone. CIWA scores have been 4 and 6 so far this shift with no need to administer Lorazepam yet. Is on contact isolation for MRSA + in [facility]. Fall risk score is moderate but since he is oriented and steady on feet bed alarm is not activated at this time.
[2023-08-07] MEDS: VANCOMYCIN 1,500 MG/300 ML PIGGYBACK 200 MG IV (01:50)
[2023-08-07] MEDS: SODIUM CHLORIDE 0.9% FLUSH 10 ML IV ×4 (01:50→23:48)
[2023-08-07] MEDS: LORazepam 1 MG TABLET PO (04:18)
[2023-08-07] MEDS: PANTOPRAZOLE DR 40 MG TABLET PO (05:18)
[2023-08-07] MEDS: AMLODIPINE 5 MG TABLET PO (09:34)
[2023-08-07] MEDS: CHLORHEXIDINE GLUCONATE 15 ML CUP PO (09:34)
[2023-08-07] MEDS: FOLIC ACID 1 MG TABLET PO (09:34)
[2023-08-07] MEDS: MULTIVITAMIN 1 TABLET 1 TAB PO (09:34)
[2023-08-07] MEDS: hydroCHLOROthiazide 25 MG TABLET 12.5 MG PO (09:35)
[2023-08-07] MEDS: THIAMINE 100 MG TABLET PO (09:35)
[2023-08-07] MEDS: lisinopriL 20 MG TABLET PO (09:36)
[2023-08-07] MEDS: MUPIROCIN 22 GM OINT 1 APPLIC TOP ×2 (09:36→20:10)
[2023-08-07] MEDS: ALBUTEROL 1.25 MG/3 ML NEB (PEDIATRIC) INH (10:15)
[2023-08-07] MEDS: BUDESONIDE 0.5 MG/2 ML NEB INH ×2 (10:15→19:15)
--- NOTE | 2023-08-07 11:06 | DI.MRI.S_ITS ---
PROCEDURE: MR FOREARM LT WO/W CON INDICATIONS: r/o nec fasc in Left forearm TECHNIQUE: Noncontrast coronal T1 spin echo and STIR, sagittal T1 spin echo with fat saturation and STIR, axial T1 spin echo and T2 fast spin echo with fat saturation. After the administration of contrast, axial/sagittal/coronal T1 spin echo with fat saturation through the left forearm. COMPARISON: None. FINDINGS: Image quality: Excellent. Bones: The visualized bone marrow demonstrates normal signal on all sequences. The overlying cortex appears intact. No abnormal intraosseous enhancement. Soft tissues: There is marked soft tissue swelling and edema around elbow and forearm extending to dorsal aspect of wrist and hand without discrete drainable peripherally enhancing abscess collection. There is fluid distending olecranon bursa incompletely evaluated on this study concerning for olecranon bursitis. No area of abnormal intramuscular enhancement. No abnormal fluid extending along fascial plane of forearm muscle is noted. No evidence of subcutaneous emphysema. IMPRESSION: 1. Suggestion of significant cellulitis throughout left forearm extending to dorsal aspect of left hand and wrist. No discrete drainable abscess collection. 2. Fluid distending olecranon bursa concerning for bursitis. 3. No MR evidence of necrotizing fasciitis or compartment syndrome. No forearm muscle or tendon signal abnormalities. 4. No marrow signal abnormalities. No evidence of osteomyelitis. No fracture or dislocation. Dictated by: Dylan Alvarez M.D. on 08/07/2023 at 15:21 Approved by: Dylan Alvarez M.D. on 08/07/2023 at 15:44
[2023-08-07] MEDS: metroNIDAZOLE 500 MG TABLET PO ×3 (11:23→20:10)
[2023-08-07] MEDS: CEFEPIME 2 GM in SODIUM CHLORIDE 0.9% 100 ML IV ×2 (11:23→23:18)
[2023-08-07 12:03] LABS: UR Morphine/Opiate cutoff 300 Negative (Negative); Ur Creatinine Normal (Normal); Ur Specific Gravity Normal (Normal); Urine Amphetamines Positive (Negative); Urine Barbiturates Negative (Negative); Urine Benzodiazepines Positive (Negative); Urine Cocaine Negative (Negative); Urine MDMA Negative (Negative); Urine Methadone Positive (Negative); Urine Methamphetamines Negative (Negative); Urine Oxycodone Positive (Negative); Urine Phencyclidine Negative (Negative); Urine Tetrahydrocannabinol Negative (Negative); Urine Tricyclic Antidepressant Negative (Negative); Urine pH Normal (Normal)
--- NOTE | 2023-08-07 14:29 | PC.NURSE ---
Addendum entered by Chloe Arias R.N. 08/07/23 19:19: Patient agitated and throwing seizure pad on the floor. States I am not having withdrawal, I dont need that. Noc RN is aware of this. He is pleasant but getting a bit anxious. Original Note: Patient denies pain or discomfort and has been groggy all day but wakes up easily. He was given ativan last night and box lidder for his CIWA scoring and has been comfortable. He is down for an MRI now on his left arm and hand. Area is more swollen today. Patient also has some scabs and old scars to his legs. His girlfriend is in the room now and visiting with her support priyanka Hathaway.
--- NOTE | 2023-08-07 16:11 | P.CONS_ITS ---
History of Present Illness Consult details Date Patient Seen: 08/07/23 Time Patient Seen: 12:15 Chief complaint: PER PT INFECTION IN ARM/ELBOW Narrative: Patient states he feels as left arm and now hand is more swollen compared to yesterday. He is also noticed increased redness and swelling in his right hand. He is scheduled to have an MRI of the left forearm today Meds Home Medications and Allergies Home Medications Medication Instructions Recorded Confirmed Type amlodipine 5 mg tablet 5 mg PO DAILY #30 tabs 01/04/22 08/05/23 Rx lisinopril 20 1 tab PO DAILY #90 tabs 01/06/22 08/05/23 Rx mg-hydrochlorothiazide 12.5 mg tablet albuterol sulfate 90 mcg/actuation 1 puff inhalation DAILY 08/05/23 08/05/23 History aerosol inhaler fluticasone propionate 115 1 puff inhalation DAILY 08/05/23 08/05/23 History mcg-salmeterol 21 mcg/actuation HFA inhaler (Advair HFA) furosemide 20 mg tablet 20 mg PO DAILY 08/05/23 08/05/23 History omeprazole 40 mg capsule,delayed 40 mg PO DAILY 08/05/23 08/05/23 History release Allergies Allergy/AdvReac Type Severity Reaction Status Date / Time No Known Drug Allergies Allergy Verified 08/05/23 12:04 Exam Vital Signs (past 8 hours): - 08/07/23 09:30 08/07/23 10:15 08/07/23 12:00 Temperature 97.3 F L Pulse Rate 98 H 91 H Respiratory Rate 18 16 18 Blood Pressure 110/82 Pulse Oximetry 92 93 Oxygen Delivery Method Room Air Oxygen Flow Rate 0 0 Fraction of Inspired Oxygen 21 08/07/23 16:00 Temperature 98.3 F Pulse Rate 91 H Respiratory Rate 18 Blood Pressure 124/77 Pulse Oximetry 92 Oxygen Delivery Method Oxygen Flow Rate 0 Fraction of Inspired Oxygen Fraction of Inspired Oxygen 21 SaO2/FiO2 Ratio 442 Oxygen Delivery Method Room Air Oxygen Flow Rate 0 Narrative Exam Narrative: Examination of patient's left arm has notable erythema and edema of the left forearm and hand. Fingers have limited range of motion due to swelling. Neurovascularly grossly intact. Unable to appreciate any open wound at this time. 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 Resp Effort & Inspection: normal respiratory effort and able to speak in complete sentences Objective Labs 08/06/23 05:13 08/06/23 05:13 Labs: Laboratory Results - last 24 hr 08/07/23 11:30 U Opiates 300ng/mL cut Negative Ur Oxycodone Screen Positive H Urine Methadone Screen Positive H Ur Barbiturates Screen Negative U Tricyclic Antidepress Negative Ur Phencyclidine Scrn Negative Ur Amphetamines Screen Positive H U Methamphetamines Scrn Negative Ur MDMA Scrn (Ecstasy) Negative U Benzodiazepines Scrn Positive H Urine Cocaine Screen Negative U Marijuana (THC) Screen Negative PFSH Medical History Hernia Vision disorder Hearing loss Ulcers of both lower legs (~2015) Alopecia (~2019) COPD (chronic obstructive pulmonary disease) (~2009) Substance abuse (~1987) PTSD (post-traumatic stress disorder) Depression (~1989) Shoulder pain (~2011) Fractures (~1975) Chronic back pain (~1989) Chicken pox Partial blindness (~1995) Hemorrhoid (~2019) Fatigue Surgical History Anesthesia History of thumb surgery (~2003) History of knee surgery (~1975) History of eye surgery (~1995) History of back surgery (~2016) Family History Father History of heart disease Mother History of heart disease Brother History of heart disease Hypertension Social History household members: none Tobacco & Substance Use Smoking Status: Former smoker alcohol intake: current Assessment & Plan Assessment & Plan narrative: Patient has left arm olecranon non-septic bursitis, which is treated with rest, NSAIDs and warm compresses as needed. Patient has been instructed to to elevate his arm on a pillow when he's resting, which may help decrease the swelling to his arm. Should the MRI reveal an abscess, re-evaluate for incision and drainage.
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
--- NOTE | 2023-08-07 16:40 | PM.PN.1 ---
Exam Vital Signs (past 8 hours): - 08/07/23 09:30 08/07/23 10:15 08/07/23 12:00 Temperature 97.3 F L Pulse Rate 98 H 91 H Respiratory Rate 18 16 18 Blood Pressure 110/82 Pulse Oximetry 92 93 Oxygen Delivery Method Room Air Oxygen Flow Rate 0 0 Fraction of Inspired Oxygen 21 08/07/23 16:00 Temperature 98.3 F Pulse Rate 91 H Respiratory Rate 18 Blood Pressure 124/77 Pulse Oximetry 92 Oxygen Delivery Method Oxygen Flow Rate 0 Fraction of Inspired Oxygen Fraction of Inspired Oxygen 21 SaO2/FiO2 Ratio 442 Oxygen Delivery Method Room Air Oxygen Flow Rate 0 Objective Labs 08/06/23 05:13 08/06/23 05:13 Labs: Laboratory Results - last 24 hr 08/07/23 11:30 U Opiates 300ng/mL cut Negative Ur Oxycodone Screen Positive H Urine Methadone Screen Positive H Ur Barbiturates Screen Negative U Tricyclic Antidepress Negative Ur Phencyclidine Scrn Negative Ur Amphetamines Screen Positive H U Methamphetamines Scrn Negative Ur MDMA Scrn (Ecstasy) Negative U Benzodiazepines Scrn Positive H Urine Cocaine Screen Negative U Marijuana (THC) Screen Negative [facility] Medical History Hernia Vision disorder Hearing loss Ulcers of both lower legs (~2015) Alopecia (~2019) COPD (chronic obstructive pulmonary disease) (~2009) Substance abuse (~1987) PTSD (post-traumatic stress disorder) Depression (~1989) Shoulder pain (~2011) Fractures (~1975) Chronic back pain (~1989) Chicken pox Partial blindness (~1995) Hemorrhoid (~2019) Fatigue Surgical History Anesthesia History of thumb surgery (~2003) History of knee surgery (~1975) History of eye surgery (~1995) History of back surgery (~2016) Family History Father History of heart disease Mother History of heart disease Brother History of heart disease Hypertension Social History household members: none Smoking Status: Former smoker alcohol intake: current Assessment & Plan Assessment & Plan narrative: Patient is consulted for swelling to left forearm. His forearm swelling/cellulitis to the left hand has not improved with antibiotics. His WBC is 10 and trending down. His blood culture is negative. I repeated aspiration to his left olecranon bursa using aseptic technique after obtaining verbal consent. Another 4 cc of straw colored bursitis fluid was aspirated. The fluid was transparent, non-viscous and no odor. His MRI of his left arm does not show drainable abscess. I discussed my findings with Dr. Mauricio. There is newly developed swelling and erythema to the right hand on exam. Patient also has subjective increased swelling to his right leg. There is no erythema and multiple old scar/lesion over skin of both legs. Will let medicine continue medical management. No surgical treatment indicated at this time. Quality VTE Deep Vein Thrombosis/Pulmonary Embolism Present on Admission: No
--- NOTE | 2023-08-07 16:56 | DI.US.S_ITS ---
PROCEDURE: US PERIPH VENOUS UP EXTREM LT INDICATIONS: SWELLING. TECHNIQUE: Real-time imaging, as well as color and pulse Doppler interrogation, was performed of the left upper extremity deep veins from the inferior neck to the antecubital fossa. COMPARISON: None. FINDINGS: The internal jugular vein, visualized portions of the subclavian vein, axillary, and brachial veins are free of intraluminal thrombus. Where physically possible, the veins are normally compressible. Color and pulse Doppler demonstrate normal intraluminal flow, with expected phasicity and pulsatility. Additional scanning of the cephalic and basilic veins of the superficial system demonstrates normal compressibility, without thrombus. IMPRESSION: No DVT identified. Incidentally noted borderline enlarged left axillary lymph nodes with thickened cortex, reactive etiology versus malignant. Consider follow-up depending on clinical context. Dictated by: Yannick Wilson M.D. on 08/07/2023 at 19:10 Approved by: Yannick Wilson M.D. on 08/07/2023 at 19:11
[2023-08-07] MEDS: CHLORHEXIDINE GLUCONATE TOP (16:58)
--- NOTE | 2023-08-07 17:43 | PC.NURSE ---
LOLA Morrow in and states placed midline to RUE. Primary RN notified
[2023-08-07] MEDS: LORATADINE 10 MG TABLET PO (20:10)
[2023-08-07 21:23] LABS: BUN Creatinine Ratio 19.2 (6-22); Blood Urea Nitrogen 19 mg/dL (9-20); Calcium 9.4 mg/dL (8.4-10.2); Carbon Dioxide 27 mmol/L (22-32); Chloride 99 mmol/L (98-107); Estimated Glomerular Filt Rate > 60 mL/min (>60); Glucose 118 mg/dL (70-100); HEMOLYSIS 17 (0-50); Potassium 4.1 mmol/L (3.4-5.1); Sodium 133 mmol/L (137-145)
[2023-08-07 21:26] LABS: C-Reactive Protein Quant 6.8 mg/dL (<1.0)
[2023-08-07 21:34] LABS: Erythrocyte Sedimentation Rate 23 MM/HR (0-15)
[2023-08-07 21:39] LABS: Add Manual Diff / Slide Review NO; Basophils Absolute Auto 100 /uL (0-100); Basophils Percent Auto 0.7 % (0-2); Eosinophils Absolute Auto 300 /uL (0-450); Eosinophils Percent Auto 3.9 % (2-4); Hemoglobin 15.7 g/dL (13.5-17.5); Lymphocytes Absolute Auto 1400 /uL (1100-4500); Lymphocytes Percent Auto 18.2 % (25-40); Mean Corpuscular HGB Conc 34.1 % (30-36); Mean Corpuscular Hemoglobin 32.9 PG (26-34); Mean Corpuscular Volume 96.6 fL (80-100); Monocytes Absolute Auto 600 /uL (0-900); Monocytes Percent Auto 8.1 % (3-14); Neutrophils Absolute Auto 5500 /uL (1500-7000); Neutrophils Percent Auto 69.1 % (50-75); Platelet Count 290 X10^3/uL (150-400); Red Blood Cell Count 4.77 X10^6/uL (4.5-5.9); Red Cell Distribution Width 14.2 % (11.6-14.8); Uric Acid 7.7 mg/dL (3.5-8.5); White Blood Cell Count 7.9 X10^3/uL (4.5-11.0)
[2023-08-07 21:41] LABS: Rheumatoid Factor 110.5 IU/mL (<12.0)
[2023-08-07 22:10] LABS: TSH w/ Reflex to FT4 1.79 uIU/mL (0.47-4.68)
[2023-08-08] VITALS: BP 130/86; RESP 20; TEMP 36.6; O2SAT 93
[2023-08-08] MEDS: SODIUM CHLORIDE 0.9% FLUSH 10 ML IV ×2 (05:10→09:10)
[2023-08-08] MEDS: PANTOPRAZOLE DR 40 MG TABLET PO (05:37)
[2023-08-08 06:00] VITALS: BP 141/92; PULSE 87; RESP 18; TEMP 36.2; O2SAT 98
[2023-08-08 08:00] VITALS: BP 120/81; PULSE 98; RESP 16; TEMP 36.2; O2SAT 100
[2023-08-08] MEDS: THIAMINE 100 MG TABLET PO (09:08)
[2023-08-08] MEDS: FOLIC ACID 1 MG TABLET PO (09:08)
[2023-08-08] MEDS: AMLODIPINE 5 MG TABLET PO (09:08)
[2023-08-08] MEDS: metroNIDAZOLE 500 MG TABLET PO (09:08)
[2023-08-08] MEDS: MULTIVITAMIN 1 TABLET 1 TAB PO (09:08)
[2023-08-08] MEDS: hydroCHLOROthiazide 25 MG TABLET 12.5 MG PO (09:09)
[2023-08-08] MEDS: MUPIROCIN 22 GM OINT 1 APPLIC TOP (09:09)
[2023-08-08 09:19] VITALS: PULSE 90; RESP 18; O2SAT 93
[2023-08-08] MEDS: BUDESONIDE 0.5 MG/2 ML NEB INH (09:19)
[2023-08-08] MEDS: NICOTINE 21 MG PATCH TOP (10:14)
[2023-08-08] MEDS: DOXYCYCLINE HYCLATE 100 MG TABLET PO (11:39)
--- NOTE | 2023-08-08 11:55 | CM.DPC ---
DCP Continued: POWER MULE OPERATOR reviewed EMR. Per chart, patient set to d/c today home. POWER MULE OPERATOR entered room. Patient resting in bed, reports no needs from CM team. Patient reports being eager to dc home. Plan: patient to d/c home today. Reports no needs from CM team. CM team will continue to follow as needed. LETI De Santiago
--- NOTE | 2023-08-08 11:59 | PC.NURSE ---
Pt is dressed and ready for discharge home. Midline has been removed. PO dose of abx given per MD order. Went over d/c instructions with Pt-discussed d/c meds, time of last dose, reviewed stroke education, advised Pt to follow up with his PCP and Financial Services Sales Representative as recommended. Pt has his own vehicle here and plans to drive himself home. Pt denies further questions and was taken out via w/c by RN to POV with all belongings.
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
[2023-08-13 16:59] LABS: ANA Screen, IFA Negative (.)
== END 2023-08-08 12:02 | disposition home or self-care (01) ==
LOC: ED 12:08 → AC 13:50
PROVIDERS: Admitting Provider Student in an Organized Health Care Education/Training Program; Emergency Provider Physician Assistant Medical; PCP Family Medicine; Referring Provider Physician Assistant Medical; Visit Provider Student in an Organized Health Care Education/Training Program
DX: L03.114 Cellulitis of left upper limb (principal); S61.231A Puncture wound without foreign body of left index finger without damage to nail, initial encounter; W29.8XXA Contact with other powered hand tools and household machinery, initial encounter; R00.0 Tachycardia, unspecified; I10 Essential (primary) hypertension; K21.9 Gastro-esophageal reflux disease without esophagitis; J44.9 Chronic obstructive pulmonary disease, unspecified; F32.A Depression, unspecified; F43.10 Post-traumatic stress disorder, unspecified
CPT/HCPCS: 36415; 36592; 73140; 73201; 73220; 80048; 80053; 80305; 83605; 83735; 84145; 84443; 84550; 85025; 85651; 86038; 86140; 86430; 87040; 87797; 90471; 93971; 94640; 96365; 96366; 96367; 96368; 96375; 99285; G0378; 90715; J0692; J0696; J0878; J1642; J2270; J2405; J2543; J7613; Q9967

== ENCOUNTER → 2024-04-04 09:32 | Outpatient (CLI) | payer OTHER, SELFPAY ==
[2023-08-05 15:15] VITALS: BMI 30.3
[2024-04-04 13:51] LABS: Prostate Specific Antigen 26.2 ng/mL (0.10-4.00)
== END ==
PROVIDERS: PCP Internal Medicine; Referring Provider Specialist; Visit Provider Specialist
DX: R97.20 Elevated prostate specific antigen [PSA] (principal); R39.9 Unspecified symptoms and signs involving the genitourinary system
CPT/HCPCS: 36415; 84153

== ENCOUNTER → 2024-06-24 10:15 | Outpatient (CLI) | payer MEDICARE, SELFPAY ==
[2023-08-05 15:15] VITALS: BMI 30.3
--- NOTE | 2024-06-24 10:16 | DI.NM.S_ITS ---
PROCEDURE: NM BONE SCAN WHOLE BODY RADIOPHARMACEUTICAL: 21.7 mCi Tc-99m MDP IV. INDICATIONS: 59 y/o M w/ newly diagnosed high-risk prostate cancer. TECHNIQUE: Delayed whole-body scintigrams were obtained approximately 3-4 hours after intravenous injection of radiotracer. Anterior and posterior views were acquired from vertex to feet. Additional left and right oblique views of the pelvis were obtained. COMPARISON: No recent staging CT is available. Findings and impression: Focal intense uptake is seen projecting over the right mid foot. Correlate with any symptoms and consider dedicated imaging in this region. Mild nonspecific uptake is seen in the right proximal humeral shaft. Mild scattered rib uptake, better seen on posterior views, for example in the right 7th posterior rib These are indeterminate for bone lesions versus areas of osseous injury. Correlate with dedicated imaging of this region and any symptoms. Other areas of upper and lower extremity likely degenerative uptake is seen. Moderate focal uptake is seen at the right sternoclavicular joint, attention on follow-up, possibly also degenerative. Nonspecific soft tissue uptake is seen throughout the lower leg. There is radiotracer excretion in the urinary system. Dictated by: Yannick Wilson M.D. on 06/24/2024 at 16:33 Approved by: Yannick Wilson M.D. on 06/24/2024 at 16:37
== END ==
LOC: NUCM 10:15
PROVIDERS: PCP Internal Medicine; Referring Provider Urology; Visit Provider Urology
DX: C61 Malignant neoplasm of prostate (principal)
CPT/HCPCS: 78306; A9503

== ENCOUNTER → 2024-07-15 10:28 | Outpatient (CLI) | payer MEDICARE, SELFPAY ==
[2024-07-11 14:22] VITALS: BMI 30.3
--- NOTE | 2024-07-15 10:32 | DI.CT.S_ITS ---
PROCEDURE: CT CHEST ABD PEL W CON INDICATIONS: newly diagnosed high-risk prostate cancer. TECHNIQUE: After the administration of intravenous contrast, 5 mm thick sections acquired from the lung apices to the symphysis. 5 mm coronal and sagittal reformats were performed, with additional 7 mm MIP reformats through the lungs. For radiation dose reduction, the following was used: automated exposure control, adjustment of mA and/or kV according to patient size. COMPARISON: [facility], CT, CT ABDOMEN PELVIS WITH CONTRAST, 05/17/2018, 23:39. [facility], CT, CT ANGIO CHEST PE PROTOCOL, 01/03/2022, 21:50. FINDINGS: Image quality: Excellent. CHEST: Lower Neck: No enlarged lymph nodes. Thyroid: No thyroid nodules which require sonographic follow up, per consensus guidelines. Axillae: No enlarged lymph nodes. Chest Wall: Unremarkable. Lungs and Pleura: No pneumothorax or pleural effusions. No consolidation or suspicious nodules. Central airways are clear. Heart: Heart size is normal. No pericardial effusion. Thoracic Vessels: The aorta and pulmonary arteries demonstrate normal size. Mediastinum and Barbra: No enlarged lymph nodes. Esophagus: No wall thickening. No hiatal hernia. ABDOMEN: Liver: No solid mass. A small hypodense foci which are most likely benign cyst or hemangioma. Gallbladder: Multiple gallstones. Biliary ducts: No biliary dilation. Pancreas: No ductal dilation. Spleen: Size is within normal limits. Adrenal Glands: No adrenal nodules. Kidneys and Ureters: No hydronephrosis. No solid mass. No complex renal cystic lesion which requires follow up. Stomach and Bowel: Normal colonic caliber, without significant wall thickening. Normal appendix. No small bowel obstruction. Peritoneum: No abnormal intraperitoneal fluid. No free air. Ventral Wall: No significant ventral hernia. Abdominal Nodes: No retroperitoneal or mesenteric adenopathy by size criteria. Vessels: Aorta and inferior vena cava are normal in size. PELVIS: Pelvic Organs: Prominent prostate gland. Bladder: No bladder wall thickening, accounting for underdistention. Pelvic Nodes: Prominent left external iliac lymph nodes measuring up to 1 cm, (2/183), similar to 2018. Preserved oval-shaped. Fatty hilum. Miscellaneous: No inguinal hernias are seen. Bones: No aggressive osseous abnormality. T11 compression fracture, unchanged. Multilevel DDD. L5-S1 pedicle screw fixation with intervertebral body spacer. Bilateral L5 pars defect. IMPRESSION: 1. No convincing metastatic disease. 2. Prominent left external iliac lymph nodes are unchanged since 2018. 3. No suspicious osseous lesion. T11 compression fracture is unchanged. 4. No suspicious pulmonary nodules. Dictated by: Pal Boyd M.D. on 07/15/2024 at 16:51 Approved by: Pal Boyd M.D. on 07/15/2024 at 17:00
[2024-07-15 11:12] LABS: Estimated Glomerular Filt Rate > 60 mL/min (>60)
== END ==
PROVIDERS: Radiology Diagnostic Radiology; PCP Internal Medicine; Referring Provider Urology; Visit Provider Urology
DX: C61 Malignant neoplasm of prostate (principal); K80.20 Calculus of gallbladder without cholecystitis without obstruction; M48.54XA Collapsed vertebra, not elsewhere classified, thoracic region, initial encounter for fracture
CPT/HCPCS: 36415; 71260; 74177; 82565; Q9967

== ENCOUNTER 2025-01-21 11:18 | Emergency (ER) | payer MEDICARE, SELFPAY ==
[2024-07-11 14:22] VITALS: BMI 30.3
[2025-01-21] VITALS (7 sets, daily range): BP systolic 144–172; BP diastolic 91–106; PULSE 99–103; RESP 20–35; TEMP 36.9; O2SAT 68–95; BMI 32.5
--- NOTE | 2025-01-21 12:31 | ED.MALEGU ---
HPI - Male Genitourinary General Chief complaint: Urogenital-Male Stated complaint: Prostate Issues Peeing blood Time Seen by Provider: 01/21/25 12:13 Source: patient Mode of arrival: Ambulatory History of Present Illness HPI Narrative: Patient sees urologist Dr. Gross, urology, has history of prostate cancer. Is seeing oncology services in [place] with [facility]. Has not had radiation or chemotherapy. Patient recently seen urology 7 days ago for procedure in the office. Please see notes below. Last night has had some blood clots and hematuria. Has had decrease in urine output. Bladder scan is 53. Assessment & Plan (1) Prostate cancer: Status: Acute Code(s): C61 - Malignant neoplasm of prostate Assessment and Plan: 59 y/o M w/ a strong FH of prostate cancer and high-risk prostate cancer who returns to Urology clinic today for GSM placement and his first CAMCEVI injection. Discussed the risks of the procedure to include pain, bleeding, infection, blood in the stool for several weeks, blood and/or blood clots within the urine for several weeks as well as bloody ejaculate for several months. Up to 1-2% of men may get an infection from their biopsy that is severe enough that they require admission to the hospital and administration of IV antibiotics. To mitigate this risk, he will use an enema the night before and the morning of the procedure as well as take an antibiotic the morning before, the morning of and the morning after his biopsy. He tolerated the aforementioned procedure without complications. He will need to return to Urology clinic in 6 months for his next CAMCEVI injection and PSA. He will now proceed with starting his XRT. Orders: Orders POC Urine Dip Today N40.1 - Benign prostatic hyperplasia with lower urinary tract symptoms, R97.20 - Elevated prostate specific antigen [PSA] Camcevi 42mg Today C61 - Malignant neoplasm of prostate Prostate Specific Antigen 5 Months C61 - Malignant neoplasm of prostate Documented By: Santiago Gross D.O. 01/14/25 0903 Signed By: <Electronically signed by Santiago Gross D.O.> 01/14/25 1806 Related Data Home Medications Medication Instructions Recorded Confirmed albuterol sulfate 90 mcg/actuation 1 puff inhalation DAILY 08/05/23 01/14/25 aerosol inhaler fluticasone propionate 115 1 puff inhalation DAILY 08/05/23 01/14/25 mcg-salmeterol 21 mcg/actuation HFA inhaler (Advair HFA) omeprazole 40 mg capsule,delayed 40 mg PO DAILY 08/05/23 01/14/25 release lisinopril 40 mg tablet 40 mg PO DAILY 07/12/24 01/14/25 Previous Rx's Medication Instructions Recorded levofloxacin 750 mg tablet 750 mg PO DAILY #3 tabs 01/07/25 cefdinir 300 mg capsule 300 mg PO BID #10 caps 01/21/25 Allergies Allergy/AdvReac Type Severity Reaction Status Date / Time No Known Drug Allergies Allergy Verified 01/14/25 09:04 Review of Systems Review of Systems Narrative: GENERAL: Negative chills, fatigue, malaise, fever, sweats. RESPIRATORY: Negative dyspnea, cough CARDIOVASCULAR: Negative chest pain, palpitations GASTROINTESTINAL: Negative vomiting, nausea, abdominal pain : Negative dysuria, frequency, positive hematuria MUSCULOSKELETAL: Negative muscle or bony pain SKIN: Negative rash, skin lesions NEUROLOGIC: Negative weakness, numbness ROS Unobtainable: All systems reviewed & are unremarkable except as noted in HPI and below Patient History Medical History BPH loc w urin obs/LUTS Family history of prostate cancer in father Elevated PSA Hernia Vision disorder Hearing loss Ulcers of both lower legs (~2015) Alopecia (~2019) COPD (chronic obstructive pulmonary disease) (~2009) Substance abuse (~1987) PTSD (post-traumatic stress disorder) Depression (~1989) Shoulder pain (~2011) Fractures (~1975) Chronic back pain (~1989) Chicken pox Partial blindness (~1995) Hemorrhoid (~2019) Fatigue Surgical History Anesthesia History of thumb surgery (~2003) History of knee surgery (~1975) History of eye surgery (~1995) History of back surgery (~2016) Family History Father History of heart disease Mother History of heart disease Brother History of heart disease Hypertension Social History marital status: number of children: 2 household members: none alcohol intake: current caffeine: No tobacco type: smokeless tobacco alcohol intake frequency: 3 or more drinks per day Alcohol type: hard liquor Exam Narrative Exam Narrative: GENERAL: in no distress, not toxic not dyspneic HEAD: Normocephalic. CARDIOVASCULAR: Regular rate and rhythm RESPIRATORY: Clear to auscultation. Breath sounds equal bilaterally. No wheezes, rales, or rhonchi. GASTROINTESTINAL: Abdomen soft, non-tender, bowel sounds are present. No peritoneal signs no guarding or rebound. No CVA tenderness EXTREMITIES: No gross deformities. BACK: No flank tenderness. NEURO: AOx4. Clear speech SKIN: Warm and dry PSYCH: Not anxious, is cooperative Initial Vital Signs Initial Vital Signs: Vital Signs Temperature 98.5 F 01/21/25 11:33 Pulse Rate 99 H 01/21/25 11:33 Respiratory Rate 20 01/21/25 11:33 Blood Pressure 164/97 H 01/21/25 11:33 Pulse Oximetry 93 01/21/25 11:33 Oxygen Delivery Method Room Air 01/21/25 11:33 Course Orders Ordered: ED Orders 01/21/25 12:30 CBC Auto Diff [Complete Blood Count AUTO DIFF] Stat CMP [Comprehensive Metabolic Panel] Stat 01/21/25 12:55 Urinalysis and Microscopic Stat Urine Culture Stat Discontinued Medications Cefdinir (Cefdinir 300 Mg Capsule) 300 mg PO NOW ONE Stop: 01/21/25 13:47 Last Admin: 01/21/25 13:55 Dose: 300 mg Documented By: Sodium Chloride (Normal Saline 0.9%) 1,000 mls @ 1,000 mls/hr IV BOLUS ONE Stop: 01/21/25 13:31 Last Infusion: 01/21/25 14:03 Dose: Infused Documented By: Admin: 01/21/25 13:06 Dose: 1,000 mls/hr Documented By: Vital Signs Vital signs: Vital Signs - 8 hr 01/21/25 11:33 01/21/25 11:46 01/21/25 11:46 Temperature 98.5 F Pulse Rate 99 H 103 H Respiratory Rate 20 Blood Pressure 164/97 H 170/101 H Pulse Oximetry 93 95 Oxygen Delivery Method Room Air 01/21/25 12:00 01/21/25 12:01 01/21/25 12:01 Temperature Pulse Rate 101 H 101 H Respiratory Rate 24 23 Blood Pressure 144/91 H Pulse Oximetry 92 92 Oxygen Delivery Method Room Air 01/21/25 12:30 01/21/25 13:01 01/21/25 13:05 Temperature Pulse Rate 101 H Respiratory Rate 35 H Blood Pressure 172/106 H Pulse Oximetry 68 L Oxygen Delivery Method 01/21/25 13:05 Temperature Pulse Rate 101 H Respiratory Rate 25 H Blood Pressure Pulse Oximetry 95 Oxygen Delivery Method MDM - Male Genitourinary Lab Data 01/21/25 12:30 01/21/25 12:30 Labs: Lab Results 01/21/25 01/21/25 Range/Units 12:30 12:55 WBC 10.2 (4.5-11.0) X10^3/uL RBC 4.54 (4.5-5.9) X10^6/uL Hgb 15.1 (13.5-17.5) g/dL Hct 44.3 (41-53) % MCV 97.5 (80-100) fL MCH 33.1 (26-34) PG MCHC 34.0 (30-36) % RDW 14.0 (11.6-14.8) % Plt Count 305 (150-400) X10^3/uL Neut % (Auto) 72.5 (50-75) % Lymph % (Auto) 15.3 L (25-40) % [place] % (Auto) 7.2 (3-14) % Eos % (Auto) 4.1 H (2-4) % Baso % (Auto) 0.9 (0-2) % Neut # (Auto) 7400 H (2498-1343) /uL Lymph # (Auto) 1600 (7186-3920) /uL [place] # (Auto) 700 (0-900) /uL Eos # (Auto) 400 (0-450) /uL Baso # (Auto) 100 (0-100) /uL Sodium 137 (137-145) mmol/L Potassium 4.0 (3.4-5.1) mmol/L Chloride 102 (98-107) mmol/L Carbon Dioxide 27 (22-32) mmol/L BUN 15 (9-20) mg/dL Creatinine 1.04 (0.66-1.25) mg/dL Estimated GFR > 60 (>60) mL/min BUN/Creatinine Ratio 14.4 (6-22) Glucose 108 H (70-99) mg/dL Calcium 8.8 (8.4-10.2) mg/dL Total Bilirubin 0.9 (0.2-1.3) mg/dL AST 38 (17-59) IU/L ALT 25 (<50) IU/L Alkaline Phosphatase 55 (38-126) U/L Total Protein 7.2 (6.3-8.2) g/dL Albumin 3.9 (3.5-5.0) g/dL Globulin 3.3 (1.7-4.1) g/dL Albumin/Globulin Ratio 1.2 (1.0-2.8) Urine Color Red Urine Appearance Turbid Urine pH 6.5 (4.5-8.0) Ur Specific [place] 1.020 (1.000-1.035) Urine Protein TNP Urine Glucose (UA) TNP Urine Ketones TNP Urine Occult Blood 3+ H (Negative) Urine Nitrate TNP Urine Bilirubin Negative (NEGATIVE) Urine Urobilinogen TNP Ur Leukocyte Esterase 1+ H (NEGATIVE) Urine RBC >100/hpf H (0-5/HPF) Urine WBC 0-1/hpf (0-5/HPF) Ur Squamous Epith Cells None seen (0-5/HPF) Urine Bacteria Many (>30) H (None) Ur Culture Indicated? Specimen cultured Vol Urine Centrifuged 10ml (spun) [facility] Narrative Medical decision making narrative: Patient sees urologist Dr. Gross, urology, has history of prostate cancer. Is seeing oncology services in [place] with [facility]. Has not had radiation or chemotherapy. Patient recently seen urology 7 days ago for procedure in the office. Please see notes below. Last night has had some blood clots and hematuria. Has had decrease in urine output. Bladder scan is 53. After history and exam, CBC CMP urinalysis bladder scan, urology consult [facility] Medical records reviewed: January 14, 2025 office visit notes/procedure Differential considered: Includes but not limited to urinary retention postop bleeding UTI prostatitis Lab Test results independently reviewed as above. Pertinent findings: WBC 10.2 hemoglobin 15.1 sodium 137 potassium 4.0 BUN 15 creatinine 1.04 GFR greater than 60, urinalysis turbid positive blood positive leukocyte esterase Imaging studies independently reviewed: None indicated at this time. Consultations: 12:37 p.m.. I spoke with Dr. Gross, patient's urologist, bleeding expected from procedure. This may occur for the next month. No imaging indicated. Patient can follow up with him in the office. No Byrd catheter at this time. Re-evaluations: 1:51 p.m.. Patient in no distress. Reviewed results with him and my discussion with his urologist. He agrees with treatment plan. Return precautions reviewed. He desires discharge home. He is hungry and would like to be discharged so he can go and eat. Discussion: Appropriate for discharge home. Exam is reassuring. Possible early UTI, antibiotics have been started. Urologist was contacted. Return precautions reviewed and patient desires discharge home. Diagnosis: Postoperative pain, hematuria, possible early UTI Discharge Plan Departure Patient Disposition: Home Clinical Impression: Post-operative pain Hematuria Qualifiers: Hematuria type: unspecified type Qualified Code(s): R31.9 - Hematuria, unspecified Instructions: DI for Urinary Tract Infection (UTI), DI for Hematuria, DI for Postoperative Pain Activity Restrictions/Additional Instructions: Your exam and laboratory studies are reassuring. Your urologist was contacted today. No imaging indicated at this time. Antibiotics have been started here and prescribed for you. Keep well hydrated. Please see your urologist this week for re-evaluation. He is indicated that after your procedure with him, blood in urine/bleeding may occur up to 30 days. Prescription antibiotic has been provided for you. Return if worse if any questions or concerns. You are being treated for possible urinary tract infection. Prescriptions: New cefdinir 300 mg capsule 300 mg PO BID Qty: 10 0RF No Action levofloxacin 750 mg tablet 750 mg PO DAILY Qty: 3 0RF Rx Instructions: Take one the day before prior to procedure, day of procedure, and day after the procedure. albuterol sulfate 90 mcg/actuation HFA aerosol inhaler 1 puff inhalation DAILY fluticasone propion-salmeterol [Advair HFA] 115-21 mcg/actuation Hfa Aerosol Inhaler 1 puff INHALATION DAILY omeprazole 40 mg Capsule,Delayed Release(Dr/Ec) 40 mg PO DAILY lisinopril 40 mg tablet 40 mg PO DAILY Referrals: Carmelita Sky MD [Primary Care Provider] - Stand Alone Forms: Patient Portal/API/Survey
[2025-01-21 12:42] LABS: Add Manual Diff / Slide Review NO; Basophils Absolute Auto 100 /uL (0-100); Basophils Percent Auto 0.9 % (0-2); Eosinophils Absolute Auto 400 /uL (0-450); Eosinophils Percent Auto 4.1 % (2-4); Hematocrit 44.3 % (41-53); Hemoglobin 15.1 g/dL (13.5-17.5); Lymphocytes Absolute Auto 1600 /uL (1100-4500); Lymphocytes Percent Auto 15.3 % (25-40); Mean Corpuscular Hemoglobin 33.1 PG (26-34); Mean Corpuscular Volume 97.5 fL (80-100); Monocytes Absolute Auto 700 /uL (0-900); Monocytes Percent Auto 7.2 % (3-14); Neutrophils Absolute Auto 7400 /uL (1500-7000); Neutrophils Percent Auto 72.5 % (50-75); Platelet Count 305 X10^3/uL (150-400); Red Blood Cell Count 4.54 X10^6/uL (4.5-5.9); White Blood Cell Count 10.2 X10^3/uL (4.5-11.0)
[2025-01-21 13:01] LABS: Alanine Aminotransferase 25 IU/L (<50); Albumin 3.9 g/dL (3.5-5.0); Albumin Globulin Ratio 1.2 (1.0-2.8); Alkaline Phosphatase 55 U/L (38-126); Aspartate Aminotransferase 38 IU/L (17-59); BUN Creatinine Ratio 14.4 (6-22); Bilirubin Total 0.9 mg/dL (0.2-1.3); Blood Urea Nitrogen 15 mg/dL (9-20); Calcium 8.8 mg/dL (8.4-10.2); Carbon Dioxide 27 mmol/L (22-32); Chloride 102 mmol/L (98-107); Estimated Glomerular Filt Rate > 60 mL/min (>60); Globulin 3.3 g/dL (1.7-4.1); Glucose 108 mg/dL (70-99); HEMOLYSIS 29 (0-50); Sodium 137 mmol/L (137-145); Total Protein 7.2 g/dL (6.3-8.2)
[2025-01-21] MEDS: SODIUM CHLORIDE 0.9% 1,000 ML 1000 ML IV (13:06)
[2025-01-21 13:16] LABS: Bilirubin Urine UA NEGATIVE (NEGATIVE); Leukocyte Esterase Urine UA 1+ (NEGATIVE); Occult Blood Urine UA 3+ (Negative); pH Urine UA 6.5 (4.5-8.0)
[2025-01-21 13:17] LABS: Appearance Urine UA TURBID
[2025-01-21 13:18] LABS: Color Urine UA RED
[2025-01-21 13:19] LABS: Bacteria Urine Many (>30); Culture Indicated Urine Specimen Cultured; RBC Urine >100/HPF (0-5/HPF); Squamous Epithelial Cell Urine None Seen (0-5/HPF); Urine Volume 10mL (spun); WBC Urine 0-1/HPF (0-5/HPF)
[2025-01-21] MEDS: CEFDINIR 300 MG CAPSULE PO (13:55)
== END 2025-01-21 14:09 | disposition home or self-care (01) ==
PROVIDERS: Emergency Provider Emergency Medicine; PCP Internal Medicine
DX: G89.18 Other acute postprocedural pain (principal); R31.9 Hematuria, unspecified; C61 Malignant neoplasm of prostate
CPT/HCPCS: 80053; 81001; 85025; 87086; 96360; 99284

== ENCOUNTER → 2025-07-02 11:53 | Outpatient (CLI) | payer MEDICARE, SELFPAY ==
[2024-07-11 14:22] VITALS: BMI 30.3
[2025-07-02 13:46] LABS: Prostate Specific Antigen 0.357 ng/mL (0.10-4.00)
== END ==
PROVIDERS: PCP Internal Medicine; Referring Provider Urology; Visit Provider Urology
DX: C61 Malignant neoplasm of prostate (principal)
CPT/HCPCS: 36415; 84153